=== PATIENT | female | born 1990 | race Caucasian/White ===

== ENCOUNTER → 2017-09-22 18:16 | Outpatient (CLI) | payer OTHER, SELFPAY ==
[2017-09-22 19:59] LABS: Group B Strep DNA By PCR POSITIVE (Negative); Probe Check PASS
== END ==
PROVIDERS: Visit Provider Obstetrics & Gynecology
DX: Z34.03 Encounter for supervision of normal first pregnancy, third trimester (principal)
CPT/HCPCS: 87077; 87081; 87186; 87653

== ENCOUNTER → 2017-10-09 13:46 | Outpatient (CLI) | payer OTHER, SELFPAY ==
--- NOTE | 2017-10-09 13:48 | US_ITS ---
STUDY: SECOND AND THIRD TRIMESTER OBSTETRICAL ULTRASOUND - LIMITED REASON FOR EXAM: Female, 27 years old. growth. LMP: 01/07/2017 PRIOR ULTRASOUND: 05/22/2017. TECHNIQUE: Transabdominal ultrasound evaluation was performed. FINDINGS: There is a single intrauterine fetus. The fetus is in a cephalic presentation. There is demonstrated cardiac activity with a heart rate of 140 bpm. There is a normal amniotic fluid volume. The largest amniotic fluid pocket measures 6.0 cm. The amniotic fluid index (CHIP) is 14.9 cm. The placenta is anterior in location and is not low lying. There are Grade 3 placental changes. The cervix measures 4.6 cm in length. BIOMETRY: BPD: 9.7: 39 weeks, 4 days HC: 33.9: 39 weeks, 1 days AC: 35.0: 39 weeks, 0 days FL: 7.3: 37 weeks, 4 days Age by LMP: 39 weeks, 1 days. ROMIE by LMP: 10/14/2017. age by prior US: 38 weeks, 6 days. ROMIE by prior US: 10/17/2017. age by current US: 39 weeks, 3 days. ROMIE by current US: 10/12/2018. Estimated weight: 3574 grams, +/- 522 grams, 58 percentile. Gender: US/OB Limited With Biometrics IMPRESSION: Single live fetus in a vertex presentation. survey not performed on this exam. Placenta is grade 3 and is not low-lying. Cervix is closed. age by prior US: 38 weeks, 6 days. ROMIE by prior US: 10/17/2017. Estimated weight: 3574 grams, +/- 522 grams, 58 percentile. Electronically Signed: John Cantrell MD at 9:24 EDT , Service support ,
== END ==
PROVIDERS: Visit Provider Obstetrics & Gynecology
DX: O26.843 Uterine size-date discrepancy, third trimester (principal); Z3A.00 Weeks of gestation of pregnancy not specified
CPT/HCPCS: 76816

== ENCOUNTER 2017-10-22 17:00 | Outpatient (CLI) | payer OTHER, SELFPAY ==
[2017-10-22 17:26] VITALS: BMI 33.9
--- NOTE | 2017-10-24 00:18 | OB.TRI.NOTE ---
History of Present Illness Date of Service: 10/22/17 Was patient seen by the physician?: No Reason For Visit: NST Date of Service: 10/22/17 Final ROMIE: 10/14/17 Gestational age: 41 Weeks and 3 Days History of Present Illness: 27 yo postdates Home Medications Medication Instructions Recorded ferrous sulfate 325 mg (65 mg 324 mg PO QDAY tab 07/20/17 iron) tablet,delayed release 1 tab PO QDAY 07/20/17 vitamin,calcium,pcmggkxp-ffjo-eirdc acid tablet Allergies amoxicillin Allergy (Intermediate, Verified 10/23/17 07:32) Rash NST - FHR Rate Baby A Baseline: 130 Variability:: Moderate Accelerations:: 15 x 15 Decelerations:: None NST Reactive:: Yes FHR Category:: Category I Uterine Activity:: no regular Impression/Plan reactive nst
== END 2017-10-22 17:36 | disposition home or self-care (01) ==
LOC: WPOUT 17:09 → WP 17:10
PROVIDERS: Visit Provider Obstetrics & Gynecology
DX: Z34.83 Encounter for supervision of other normal pregnancy, third trimester (principal); Z3A.41 41 weeks gestation of pregnancy
CPT/HCPCS: 59025; 59050; 99218; G0378

== ENCOUNTER 2017-10-23 07:05 | Inpatient (IN) | payer OTHER, SELFPAY ==
[2017-10-23 07:19] VITALS: BMI 33.7
[2017-10-23] MEDS: Lactated Ringers 1,000 ML 50 ML IV ×4 (08:00→21:31)
[2017-10-23] MEDS: miSOPROStol 25 MCG TABLET VAGINAL (08:12)
[2017-10-23 08:25] LABS: Hematocrit 33.6 % (37-47); Hemoglobin 11.2 g/dl (12.0-15.0); Mean Corp Hgb Conc 33.3 g/gl (32-36); Mean Corpuscular Hgb 29.2 pg (27.0-32.0); Mean Corpuscular Volume 87.5 fL (81-99); Mean Platelet Vol. 11.9 fl (6.2-12.0); Platelet Count 206 K/mm3 (150-450); RBC Distribution Width CV 13.6 % (11.6-14.6); RBC Distribution Width SD 41.4 fl (35.1-43.9); Red Blood Count 3.84 M/mm3 (4.2-5.4); White Blood Count 7.5 K/mm3 (4.4-11.0)
[2017-10-23 08:28] LABS: Scan Indicated on CBC? Y/N NO
[2017-10-23] MEDS: Clindamycin 900 MG/50 ML BAG 75 MG IV ×2 (08:45→17:21)
[2017-10-23] MEDS: Nalbuphine 10 MG/ML Ampul IV (11:02)
[2017-10-23] MEDS: Ondansetron 4 MG/2 ML Vial IV (13:05)
[2017-10-23] MEDS: fentaNYL-bupivacaine (epidural) 100 ML BAG EPIDURAL ×3 (13:27→22:50)
--- NOTE | 2017-10-23 13:29 | PCM.HP.OB ---
- Problem List (1) Post-dates Status: Acute History Date of Admission: 10/23/17 Final ROMIE: 10/14/17 Gestational age: 41 Weeks and 2 Days History of this : 27 yo @ 41w2d presents for IOL secondary to postdates. she co some ctx this morning and has made cervical change. Pertinent Past Medical History: FORMERLY [facility] Medical History Rheumatoid arthritis (Acute) Surgical History History of appendectomy (Acute) ankle surgery (Acute) Social History Smoking Status: Unknown if ever smoked alcohol intake: never substance use type: does not use caffeine: Yes what type of physical activity do you participate in: none seatbelt use: always do you feel safe at home: Yes additional social history: Geraldo- [employer] Pregancy History 1 Elective abortions Hx Para Spontaneous abortions Hx # Term Pregnancies Ectopic pregnancies Hx # Pregnancies Multiple births # of living children Allergies amoxicillin Allergy (Intermediate, Verified 10/23/17 07:32) Rash Current Medications Acetaminophen (Tylenol) 325 - 650 mg PO Q4H PRN PRN PRN Reason: PAIN OR FEVER >100.4F Al Hydroxide/Mg Hydroxide (Mylanta Ii) 15 - 30 ml PO Q4H PRN PRN PRN Reason: INDIGESTION Citric Acid/Sodium Citrate (Bicitra) 30 ml PO UD PRN Lactated Ringer's () 1,000 mls @ 50 mls/hr IV .Q20H [facility] Last Admin: 10/23/17 08:00 Dose: 50 mls/hr Clindamycin Phosphate (Cleocin) 900 mg in 50 mls @ 75 mls/hr IV Q8H [facility] Last Admin: 10/23/17 08:45 Dose: 75 mls/hr Misoprostol (Cytotec) 25 mcg VAGINAL Q4H [facility] Stop: 10/24/17 04:16 Last Admin: 10/23/17 08:12 Dose: 25 mcg Nalbuphine HCl (Nubain) 5 - 10 mg IV Q3H PRN PRN PRN Reason: PAIN (4-10/10) Last Admin: 04/02/18 11:02 Dose: 10 mg Ondansetron HCl (Zofran) 4 mg IV Q8H PRN PRN PRN Reason: NAUSEA Promethazine HCl (Phenergan Iv) 6.25 - 12.5 mg IV Q4H PRN PRN; Protocol PRN Reason: IF NAUSEA PERSISTS Sodium Chloride () 5 - 15 ml IV UD [facility] Last Admin: 10/23/17 08:32 Dose: Not Given Smoking Status: Never smoker Alcohol: None Drug Use: none Number of Fetus(es): 1 - 140s moderate variability reactive n odecels toco irregular Review of Systems Constitutional: Denies: Chills, Fever, Weight Change HEENT: Denies: Head Aches, Sinus Congestion, Sinus Drainage Cardiovascular: Denies: Chest Pain, Palpitations Respiratory: Denies: Cough, Shortness of breath at rest, Sputum production Gastrointestinal: Reports: Abdominal Pain, Nausea. Denies: Vomiting Genitourinary: Denies: Dysuria Gynecological: Denies: Vaginal bleeding, Vaginal discharge Musculoskeletal: Denies: Joint Pain, Joint Tenderness Skin: Denies: Rash, Wounds Neurological: Denies: Numbness, Tingling, Focal weakness Psychiatric: Denies: Anxiety, Depression, Homicidal Ideations, Suicidal Ideations Hematologic/ Lymphatic: Denies: Easy Bruising, Easy Bleeding Physical Exam General: Alert, Oriented x3, No apparent distress Cardiovascular: Regular rate Lungs: Normal air movement Abdomen: Soft, Non Tender, Gravid Estimated gestational size: Appropriate for gestational size Presentation: Cephalic Cervix Dilation (cm): 1 Station: -3 Effacement (%): 70 Assessment/Plan Active and Suspected Problems (Last Reviewed 10/19/17 @ 12:01 by Ly Hernández) Post-dates (Acute) 27 yo @ 41w2d presents for IOL postates plan cytotec then fb/pit. gbs pos give clinda, and epi prn
[2017-10-23] MEDS: 0.9% Normal Saline 100 ML IV.SOLN. INTRA-UTER (13:38)
[2017-10-23] MEDS: Oxytocin 30 units/NS 500 ml 30 UNITS/500 ML IV.SOLN IV (13:47)
--- NOTE | 2017-10-23 13:50 | HP.PCM_ITS ---
- Problem List (1) Post-dates Status: Acute History Date of Admission: 10/23/17 Final ROMIE: 10/14/17 Gestational age: 41 Weeks and 2 Days History of this : 27 yo @ 41w2d presents for IOL secondary to postdates. she co some ctx this morning and has made cervical change. 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 History 1 Elective abortions Hx Para Spontaneous abortions Hx # Term Pregnancies Ectopic pregnancies Hx # Pregnancies Multiple births # of living children Allergies amoxicillin Allergy (Intermediate, Verified 10/23/17 07:32) Rash Current Medications Acetaminophen (Tylenol) 325 - 650 mg PO Q4H PRN PRN PRN Reason: PAIN OR FEVER >100.4F Al Hydroxide/Mg Hydroxide (Mylanta Ii) 15 - 30 ml PO Q4H PRN PRN PRN Reason: INDIGESTION Citric Acid/Sodium Citrate (Bicitra) 30 ml PO UD PRN Lactated Ringer's () 1,000 mls @ 50 mls/hr IV .Q20H [facility] Last Admin: 10/23/17 08:00 Dose: 50 mls/hr Clindamycin Phosphate (Cleocin) 900 mg in 50 mls @ 75 mls/hr IV Q8H [facility] Last Admin: 10/23/17 08:45 Dose: 75 mls/hr Misoprostol (Cytotec) 25 mcg VAGINAL Q4H [facility] Stop: 10/24/17 04:16 Last Admin: 10/23/17 08:12 Dose: 25 mcg Nalbuphine HCl (Nubain) 5 - 10 mg IV Q3H PRN PRN PRN Reason: PAIN (4-10/10) Last Admin: 04/02/18 11:02 Dose: 10 mg Ondansetron HCl (Zofran) 4 mg IV Q8H PRN PRN PRN Reason: NAUSEA Promethazine HCl (Phenergan Iv) 6.25 - 12.5 mg IV Q4H PRN PRN; Protocol PRN Reason: IF NAUSEA PERSISTS Sodium Chloride () 5 - 15 ml IV UD [facility] Last Admin: 10/23/17 08:32 Dose: Not Given Smoking Status: Never smoker Alcohol: None Drug Use: none Number of Fetus(es): 1 - 140s moderate variability reactive n odecels toco irregular Review of Systems Constitutional: Denies: Chills, Fever, Weight Change HEENT: Denies: Head Aches, Sinus Congestion, Sinus Drainage Cardiovascular: Denies: Chest Pain, Palpitations Respiratory: Denies: Cough, Shortness of breath at rest, Sputum production Gastrointestinal: Reports: Abdominal Pain, Nausea. Denies: Vomiting Genitourinary: Denies: Dysuria Gynecological: Denies: Vaginal bleeding, Vaginal discharge Musculoskeletal: Denies: Joint Pain, Joint Tenderness Skin: Denies: Rash, Wounds Neurological: Denies: Numbness, Tingling, Focal weakness Psychiatric: Denies: Anxiety, Depression, Homicidal Ideations, Suicidal Ideations Hematologic/ Lymphatic: Denies: Easy Bruising, Easy Bleeding Physical Exam General: Alert, Oriented x3, No apparent distress Cardiovascular: Regular rate Lungs: Normal air movement Abdomen: Soft, Non Tender, Gravid Estimated gestational size: Appropriate for gestational size Presentation: Cephalic Cervix Dilation (cm): 1 Station: -3 Effacement (%): 70 Assessment/Plan Active and Suspected Problems (Last Reviewed 10/19/17 @ 12:01 by Ly Hernández) Post-dates (Acute) 27 yo @ 41w2d presents for IOL postates plan cytotec then fb/pit. gbs pos give clinda, and epi prn
--- NOTE | 2017-10-23 14:20 | PCM.PN.BLA ---
Progress Note fb placed 1-2 cm 80 % effaced, regular ctx painful, wants epi. reassuring FHT category 1 tracing
[2017-10-23] MEDS: Acetaminophen 325 MG Tablet PO (18:39)
[2017-10-23] MEDS: Amnioinfusion- 0.9% NS 1,000 ML IV.SOLN. 75 ML INTRA-UTER (23:35)
--- NOTE | 2017-10-24 00:16 | PCM.PN.BLA ---
Progress Note cervix 6 cm- increase pitocin to obtain adequate ctx. fht 150s min-mod variability periodic variables occasionally. start amnioinfusion. overall reassuring and positive scalp stimulation. exp managment
[2017-10-24] MEDS: Clindamycin 900 MG/50 ML BAG 75 MG IV ×2 (00:30→08:37)
[2017-10-24] MEDS: Acetaminophen 325 MG Tablet PO (03:05)
[2017-10-24] MEDS: fentaNYL-bupivacaine (epidural) 100 ML BAG EPIDURAL ×2 (04:17→09:51)
[2017-10-24] MEDS: Amnioinfusion- 0.9% NS 1,000 ML IV.SOLN. 75 ML INTRA-UTER (07:17)
--- NOTE | 2017-10-24 08:05 | PCM.PN.BLA ---
Progress Note now 8-9 cm 90 +1 station, continue pitocin 10 mU, category I- category II tracing psotive scalp stimulation min-moderate variability periodic occasional variable
[2017-10-24] MEDS: Lactated Ringers 1,000 ML 50 ML IV (08:34)
[2017-10-24] MEDS: Oxytocin 30 units/NS 500 ml 30 UNITS/500 ML IV.SOLN 334 UNITS IV (12:24)
[2017-10-24] MEDS: Oxytocin 30 units/NS 500 ml 30 UNITS/500 ML IV.SOLN 167 UNITS IV (12:54)
[2017-10-24 16:00] VITALS: BP 97/58; PULSE 90; RESP 18; TEMP 37.6; O2SAT 97
[2017-10-24] MEDS: Naproxen 250 MG Tablet PO (17:02)
[2017-10-24] MEDS: Acetaminophen 500 MG Tablet 1000 MG PO (19:52)
[2017-10-24 19:54] VITALS: BP 114/77; PULSE 97; RESP 18; TEMP 36.6
[2017-10-24 23:09] VITALS: BP 177/71; PULSE 80; RESP 18; TEMP 35.9
--- NOTE | 2017-10-25 01:49 | PCM.OB.VAG ---
- Problem List (1) Post-dates Status: Acute Vaginal Delivery Maternal Presentation: Medically Indicated Induction 27 yo @ 41w3d presents for IOL postdates Method of Induction: Pitocin, Rodriguez Bulb, Cytotec Medical Reason for Induction: Post term Amniotic Membrane Rupture Type: Artificial Amniotic Fluid Description: Thick meconium Final ROMIE: 10/14/17 Gestational age: 41 Weeks and 3 Days Date of Procedure: 10/24/17 Pre-Operative Diagnosis: iol postdates Post-Operative Diagnosis: same Surgery/ Procedure Performed: Spontaneous Vaginal Delivery Type of Anesthesia: Epidural Description of Procedure: Patient began pushing and delivered the head in the ANATOLY presentation. The head was delivered atraumatically . The anterior and posterior shoulders delivered without complication followed by the rest of the and the was placed on the maternal abdomen. Delayed cord clamping was employed for approximately 60 seconds. Cord was clamped and cut and gentle traction was applied to the cord and the placenta delivered spontaneously immediately following it was noted to be intact with three-vessel cord. some abnormal membranes were seen coming off from the cord approximately 3 cm from the insertion but no other gross abnormalities were seen. thin cord was noted. The perineum and vagina were inspected and noted to have a second degree perineal laceration that was repaired in the usual fashion with 3-0 rapide. an additional stitch was placed at the introitus and left hymenal ring. EBL was 600 cc. Patient and tolerated delivery well. Presentation: ANATOLY Placental Delivery Description: Spontaneous Placenta Disposition: [facility] Cord Vessel Description: 3 Vessels Cord Entanglement: None Estimated Blood Loss: 100 A gender: Male Episiotomy Description: None Laceration: Perineal Extension/lac, 2nd degree Medications given after delivery: IV Pitocin Complications: None
[2017-10-25 03:43] VITALS: BP 120/64; PULSE 82; RESP 16; TEMP 36.6
[2017-10-25] MEDS: Naproxen 250 MG Tablet PO ×2 (03:51→15:30)
[2017-10-25] MEDS: Acetaminophen 500 MG Tablet 1000 MG PO (08:41)
[2017-10-25 08:45] VITALS: BP 117/69; PULSE 80; RESP 20; TEMP 36.8; O2SAT 97
[2017-10-25] MEDS: Senna/Docusate Sodium 1 Tablet PO (10:36)
[2017-10-25 11:07] LABS: Absolute Lymphocyte Count 1.78 X10^3/ul (0.83-4.51); Absolute Neutrophil Count 13.7 X10^3/uL (2.0-7.7); Eosinophil# 0.05 X10^3/uL; Eosinophils% 0.3 % (0-5); Hematocrit 23.2 % (37-47); Hemoglobin 7.6 g/dl (12.0-15.0); Lymphocyte # 1.78 X10^3/ul (4.0); Lymphocyte % 10.8 % (19-41); Mean Corp Hgb Conc 32.8 g/gl (32-36); Mean Corpuscular Hgb 28.4 pg (27.0-32.0); Mean Corpuscular Volume 86.6 fL (81-99); Mean Platelet Vol. 11.4 fl (6.2-12.0); Monocyte# 0.87 X10^3/uL; Monocyte% 5.3 % (0-10); Neutrophil # 13.68 X10^3/uL (2.7-7.7); Neutrophil % 83.2 % (47-70); Platelet Count 199 K/mm3 (150-450); RBC Distribution Width CV 14.6 % (11.6-14.6); RBC Distribution Width SD 45.2 fl (35.1-43.9); Red Blood Count 2.68 M/mm3 (4.2-5.4); White Blood Count 16.4 K/mm3 (4.4-11.0)
[2017-10-25 11:12] LABS: POSITIVE COUNT NO; POSITIVE DIFFERENTIAL NO; POSITIVE MORPHOLOGY NO
[2017-10-25 12:05] VITALS: BP 113/71; PULSE 95; TEMP 36.7; O2SAT 94
[2017-10-25 14:18] LABS: Hemoglobin 7.6 g/dl (12.0-15.0)
[2017-10-25 17:20] VITALS: BP 118/78; PULSE 91; TEMP 36.2; O2SAT 96
[2017-10-25 21:06] VITALS: BP 134/83; PULSE 100; RESP 18; TEMP 36.8
[2017-10-26] MEDS: Naproxen 250 MG Tablet PO (00:29)
[2017-10-26 02:40] VITALS: BP 121/72; PULSE 94; RESP 16; TEMP 36.8
--- NOTE | 2017-10-26 08:02 | PCM.PN.OB ---
Patient Problems: Active and Suspected Problems (Last Reviewed 10/19/17 @ 12:01 by Ly Hernández) Post-dates (Acute) Subjective: Doing well. Denies SOB, CP, NV. - Physical Exam General: Alert, Oriented x3 Abdomen: Soft, Non Tender, - - FF Below U Vital Signs Temp Pulse Resp BP Pulse Ox 98.2 F 94 16 121/72 H 96 10/26/17 02:40 10/26/17 02:40 10/26/17 02:40 10/26/17 02:40 10/25/17 17:20 Oxygen Delivery Method Room Air Weight: 190 lb 7.67 oz Body Mass Index (BMI) 33.7 Intake and Output for Last 24 Hours 10/24/17 10/25/17 10/26/17 23:59 23:59 23:59 Intake Total 4810 / 4810 Output Total 2049 / 2049 Balance 2760 / 2760 Laboratory Tests Past 24 Hrs 10/25/17 10/25/17 10:42 14:08 WBC 16.4 H RBC 2.68 L Hgb 7.6 L 7.6 L Hct 23.2 L MCV 86.6 MCH 28.4 MCHC 32.8 RDW 14.6 RDW Differential 45.2 H Plt Count 199 MPV 11.4 Immature Gran % (Auto) 0.400 Neut % (Auto) 83.2 H Lymph % (Auto) 10.8 L [place] % (Auto) 5.3 Eos % (Auto) 0.3 Baso % (Auto) 0.0 Absolute Neuts (auto) 13.7 H Absolute Lymphs (auto) 1.78 Total Counted Not Reportable Medical Necessity - Tobacco Use Smoking Status: Never smoker Assessment/Plan Active and Suspected Problems (Last Reviewed 10/19/17 @ 12:01 by Ly Hernández) Post-dates (Acute) PPD #2. Doing well. Routine care. Rh positive. . Plans home today.
--- NOTE | 2017-10-26 08:10 | PCM.DCVAG ---
Discharge Diet: No Restrictions Discharge Activity: Return to Normal Activity, May not drive while taking narcotic pain medications., May Shower May resume sexual activity in: 4-6 weeks Additional Activity Instructions:: Nothing in the vagina for 4-6 weeks. You may return to work/school in 6 weeks. Call your doctor if your incision/area has: Continuous Slow Oozing, Sudden Increased Bleeding, Increased Pain/ Swelling, Increased Redness, Foul Smelling Discharge Additional Instructions: If you experience any of the following, contact your healthcare provider. Bleeding that soaks a pad every hour for 2 hours Fever 100.4 or higher Unrelieved incision or abdominal pain Swelling, redness, discharge or bleeding from your incision or episiotomy site Your incision begins to separate Problems urinating (including inability to urinate or burning while urinating). Visual changes Severe headache Flu-like symptoms Pain or redness in one of both of your breasts Pain, warmth, tenderness or swelling in your legs, especially the calf area Frequent nausea and vomiting Symptoms of depression or anxiety If you experience any of the following, call 911 or go to the nearest Emergency Room. Chest pain Problems breathing Seizure activity Partial or complete paralysis of a body part, slurred speech, weakness or drooping of the face, or a sudden inability to walk or hold your balance Allergies/Adverse Reactions: Allergies amoxicillin Allergy (Intermediate, Verified 10/23/17 07:32) Rash Medications to take at Discharge ferrous sulfate 325 mg (65 mg iron) tablet,delayed release 324 mg PO QDAY tab 07/20/17 vitamin,calcium,chwgxjsz-tnfg-ybbzu acid tablet 1 tab PO QDAY 07/20/17 When: Call to make an appointment with your doctor in 6 weeks. If you had elevated Blood Pressure or 4th degree laceration you will need to be seen in 2 weeks. Primary Care Physician: Care Physician,No Primary [Primary Care Provider] -
--- NOTE | 2017-10-26 08:11 | DCINST_ITS ---
Discharge Diet: No Restrictions Discharge Activity: Return to Normal Activity, May not drive while taking narcotic pain medications., May Shower May resume sexual activity in: 4-6 weeks Additional Activity Instructions:: Nothing in the vagina for 4-6 weeks. You may return to work/school in 6 weeks. Call your doctor if your incision/area has: Continuous Slow Oozing, Sudden Increased Bleeding, Increased Pain/ Swelling, Increased Redness, Foul Smelling Discharge Additional Instructions: If you experience any of the following, contact your healthcare provider. * Bleeding that soaks a pad every hour for 2 hours * Fever 100.4 or higher * Unrelieved incision or abdominal pain * Swelling, redness, discharge or bleeding from your incision or episiotomy site * Your incision begins to separate * Problems urinating (including inability to urinate or burning while urinating) . * Visual changes * Severe headache * Flu-like symptoms * Pain or redness in one of both of your breasts * Pain, warmth, tenderness or swelling in your legs, especially the calf area * Frequent nausea and vomiting * Symptoms of depression or anxiety If you experience any of the following, call 911 or go to the nearest Emergency Room. * Chest pain * Problems breathing * Seizure activity * Partial or complete paralysis of a body part, slurred speech, weakness or drooping of the face, or a sudden inability to walk or hold your balance Allergies/Adverse Reactions: Allergies amoxicillin Allergy (Intermediate, Verified 10/23/17 07:32) Rash Medications to take at Discharge ferrous sulfate 325 mg (65 mg iron) tablet,delayed release 324 mg PO QDAY tab 07/20/17 vitamin,calcium,cckulete-exuj-ttbek acid tablet 1 tab PO QDAY 07/20/17 When: Call to make an appointment with your doctor in 6 weeks. If you had elevated Blood Pressure or 4th degree laceration you will need to be seen in 2 weeks. Primary Care Physician: Care Physician,No Primary [Primary Care Provider] -
[2017-10-26 08:40] VITALS: BP 122/78; PULSE 94; RESP 20; TEMP 36.9; O2SAT 97
--- NOTE | 2017-10-26 10:25 | PCM.DC.SUM ---
Discharge Date and Diagnosis - Problem List Patient Problems: Active and Suspected Problems (Last Reviewed 10/19/17 @ 12:01 by Ly Hernández) Post-dates (Acute) Date of Admission: 10/23/17 - Primary Discharge Diagnosis Active and Suspected Problems (Last Reviewed 10/19/17 @ 12:01 by Ly Hernández) Post-dates (Acute) Hospital Course and Treatment Consultations 10/23/17 07:19 Consult: Anesthesia Routine Comment: Reason For Exam: labor Summary of Care Provided: The patient is a 27 year old F [] Discharge Diet: No Restrictions Discharge Activity: Return to Normal Activity, May not drive while taking narcotic pain medications., May Shower May resume sexual activity in: 4-6 weeks Additional Activity Instructions:: Nothing in the vagina for 4-6 weeks. You may return to work/school in 6 weeks. Call your doctor if your incision/area has: Continuous Slow Oozing, Sudden Increased Bleeding, Increased Pain/ Swelling, Increased Redness, Foul Smelling Discharge Home Medications: Medications to take at Discharge ferrous sulfate 325 mg (65 mg iron) tablet,delayed release 324 mg PO QDAY tab 07/20/17 vitamin,calcium,ahgktsau-vgzp-twgrh acid tablet 1 tab PO QDAY 07/20/17 Primary Care Physician: Care Physician,No Primary [Primary Care Provider] - Medical Necessity - Tobacco Use Smoking Status: Never smoker Meaningful Use Info Meaningful Use Diagnoses (Choose all that apply): None applicable
== END 2017-10-26 12:35 | disposition home or self-care (01) | DRG 775 ==
PROVIDERS: Nurse Practitioner Women's Health; Admitting Provider Obstetrics & Gynecology; Visit Provider Obstetrics & Gynecology
DX: O48.0 Post-term pregnancy (principal); O70.1 Second degree perineal laceration during delivery; O77.0 Labor and delivery complicated by meconium in amniotic fluid; Z37.0 Single live birth; Z3A.41 41 weeks gestation of pregnancy
CPT/HCPCS: 59025; 59050; 85018; 85025; 85027; 86850; 86900; 99218; J7030; J7120; G0378; J2405

== ENCOUNTER → 2018-11-27 | Outpatient (CLI) | payer OTHER, SELFPAY ==
[2018-09-24 11:03] VITALS: BMI 27.4
[2018-11-27 13:09] LABS: Progesterone Level 0.37 ng/mL (See Comment)
== END | disposition home or self-care (01) ==
LOC: BIMLAB 08:10
PROVIDERS: Family Provider Family Medicine; Visit Provider Nurse Practitioner Women's Health
DX: N97.9 Female infertility, unspecified (principal)
CPT/HCPCS: 36415; 84144

== ENCOUNTER → 2018-12-12 | Outpatient (CLI) | payer OTHER, SELFPAY ==
[2018-12-12 10:26] VITALS: BMI 27.4
[2018-12-15 12:51] LABS: HPV Reflexed? NOT INDICATED
== END | disposition home or self-care (01) ==
LOC: LABSPEC 17:11
PROVIDERS: Referring Provider Obstetrics & Gynecology; Visit Provider Obstetrics & Gynecology
DX: Z12.4 Encounter for screening for malignant neoplasm of cervix (principal)
CPT/HCPCS: 87624; 88175; G0145

== ENCOUNTER → 2019-01-07 | Outpatient (CLI) | payer OTHER, SELFPAY ==
[2018-12-12 10:26] VITALS: BMI 27.4
[2019-01-07 15:55] LABS: Progesterone Level 3.54 ng/mL (See Comment)
== END | disposition home or self-care (01) ==
LOC: MTLAB 14:03
PROVIDERS: Referring Provider Obstetrics & Gynecology; Visit Provider Obstetrics & Gynecology
DX: N97.0 Female infertility associated with anovulation (principal)
CPT/HCPCS: 36415; 84144

== ENCOUNTER → 2019-02-14 | Outpatient (CLI) | payer OTHER, SELFPAY ==
[2018-12-12 10:26] VITALS: BMI 27.4
[2019-02-14 13:10] LABS: Progesterone Level 0.12 ng/mL (See Comment)
== END | disposition home or self-care (01) ==
LOC: BIMLAB 11:54
PROVIDERS: Visit Provider Obstetrics & Gynecology
DX: N97.0 Female infertility associated with anovulation (principal)
CPT/HCPCS: 36415; 84144

== ENCOUNTER → 2019-04-09 09:11 | Outpatient (REF) | payer OTHER, SELFPAY ==
[2018-12-12 10:26] VITALS: BMI 27.4
[2019-04-09 12:07] LABS: Color, Urine Yellow (Yellow); Glucose, Dipstick Normal (Normal); Ketone-Dipstick Negative (Negative); Leukocyte Esterase-Dipstick Negative /ul (Negative); Nitrite-Dipstick Negative (Negative); Occult Blood-Urine Negative /ul (Negative); Protein-Dipstick Negative (Negative); Specific Gravity, Urine 1.015 (1.002-1.030); Urine Bilirubin Dipstick Negative (Negative); Urine Clarity Sl. Cloudy (Clear); Urine Urobilinogen Normal (Normal)
[2019-04-09 12:20] LABS: Absolute Lymphocyte Count 0.85 X10^3/uL (0.83-4.51); Absolute Neutrophil Count 2.5 X10^3/uL (2.0-7.7); Eosinophil# 0.06 X10^3/uL; Eosinophils% 1.6 % (0-5); Hematocrit 37.6 % (37-47); Hemoglobin 11.9 g/dL (12.0-15.0); Lymphocyte # 0.85 X10^3/ul; Lymphocyte % 22.8 % (19-41); Mean Corp Hgb Conc 31.6 g/dL (32-36); Mean Corpuscular Hgb 27.9 pg (27.0-32.0); Mean Corpuscular Volume 88.1 fL (81-99); Mean Platelet Vol. 10.5 fl (6.2-12.0); Monocyte# 0.32 X10^3/uL; Monocyte% 8.6 % (0-10); NRBC Flagged by Analyzer 0 % (0-5); Neutrophil # 2.48 X10^3/uL (2.7-7.7); Neutrophil % 66.7 % (47-70); Platelet Count 204 K/mm3 (150-450); RBC Distribution Width CV 11.9 % (11.6-14.6); RBC Distribution Width SD 38.5 fl (35.1-43.9); Red Blood Count 4.27 M/mm3 (4.2-5.4); White Blood Count 3.7 K/mm3 (4.4-11.0)
[2019-04-09 12:40] LABS: ALB/GLOB Ratio 0.8 RATIO (0.9-2.4); AST(SGOT) 13 U/L (15-37); Alanine Aminotransfer ALT/SGPT 25 U/L (13-56); Albumin, Serum 3.8 g/dL (3.2-5.0); Alkaline Phosphatase 85 U/L (45-117); Anion Gap 4 (5-15); BUN 15 mg/dL (7-18); Bilirubin, Direct 0.07 mg/dL (0.00-0.30); Calcium,Total 9.1 mg/dL (8.5-10.1); Chloride 106 mmol/L (98-107); Cholesterol 151 mg/dL (200); Creatinine, Serum 0.75 mg/dL (0.55-1.02); EST Glomerular Filtration Rate 97 mL/min (>60); Est Glom Filt Rate - Afr Amer 118 mL/min (>60); Globulin 4.5 g/dL (2.2-4.2); Glucose 81 mg/dL (74-106); High Density Lipoprotein 39 mg/dL; LDH 184 U/L (84-246); Phosphorus 3.7 mg/dL (2.5-4.9); Protein, Total 8.3 g/dL (6.4-8.2); Sodium Level 139 mmol/L (136-145); Triglycerides 90 mg/dL; Uric Acid 4.7 mg/dL (2.6-6.0); Very Low Density Lipoprotein 18 mg/dL (5-40)
== END ==
LOC: EMPH 09:11
DX: Z00.00 Encounter for general adult medical examination without abnormal findings (principal)

== ENCOUNTER → 2019-04-09 09:14 | Outpatient (CLI) | payer OTHER, SELFPAY ==
[2018-12-12 10:26] VITALS: BMI 27.4
[2019-04-09 12:43] LABS: Progesterone Level 0.15 ng/mL (See Comment)
[2019-04-09 13:01] LABS: Estradiol 30.2 pg/mL; Follicle Stimulating Hormone 7.4 mIU/mL; Prolactin 5.5 ng/mL; T4 Free Direct 0.99 ng/dL (0.76-1.46); Thyroid Stim Hormone (TSH) 2.17 uIU/mL (0.358-3.74)
[2019-04-11 17:33] LABS: Testosterone Free 1.2 pg/mL (0.0-4.2)
== END ==
PROVIDERS: Visit Provider Obstetrics & Gynecology
DX: N92.1 Excessive and frequent menstruation with irregular cycle (principal); N95.1 Menopausal and female climacteric states
CPT/HCPCS: 36415; 82670; 83001; 84144; 84146; 84402; 84439; 84443

== ENCOUNTER → 2019-06-03 10:30 | Outpatient (CLI) | payer OTHER, SELFPAY ==
[2018-12-12 10:26] VITALS: BMI 27.4
[2019-06-03 12:00] LABS: Glucose 75GTT - 30 minutes 114 mg/dL (100-160)
[2019-06-03 12:04] LABS: Glucose 75GTT - Fasting 83 mg/dL (70-99)
[2019-06-03 12:20] LABS: AST(SGOT) 15 U/L (15-37); Alanine Aminotransfer ALT/SGPT 27 U/L (13-56); Albumin, Serum 3.7 g/dL (3.2-5.0); Alkaline Phosphatase 67 U/L (45-117); Anion Gap 6 (5-15); BUN 13 mg/dL (7-18); BUN/Creat Ratio 18.3 RATIO (10-20); Bilirubin, Direct 0.08 mg/dL (0.00-0.30); Calcium,Total 8.8 mg/dL (8.5-10.1); Chloride 110 mmol/L (98-107); Cholesterol 117 mg/dL (200); Creatinine, Serum 0.71 mg/dL (0.55-1.02); EST Glomerular Filtration Rate 104 mL/min (>60); Est Glom Filt Rate - Afr Amer 126 mL/min (>60); Globulin 4.1 g/dL (2.2-4.2); Glucose 81 mg/dL (74-106); High Density Lipoprotein 35 mg/dL; Phosphorus 2.2 mg/dL (2.5-4.9); Potassium 3.8 mmol/L (3.5-5.1); Protein, Total 7.8 g/dL (6.4-8.2); Sodium Level 141 mmol/L (136-145); Triglycerides 93 mg/dL; Very Low Density Lipoprotein 19 mg/dL (5-40)
[2019-06-03 12:26] LABS: Insulin 8.7 mU/L (2.6-37.6); Rubella IgG 341.7 IU/mL
[2019-06-03 13:18] LABS: Glucose 75GTT - 60 minutes 98 mg/dL (100-160)
[2019-06-03 14:03] LABS: Glucose 75GTT - 120 minutes 95 mg/dL (70-140)
[2019-06-04 16:07] LABS: DHEA Sulfate 114.7 ug/dL (84.8-378.0); Hemoglobin Fraction A 94.9 % (96.4-98.8); Hemoglobin Fraction A2 1.9 % (1.8-3.2); Hemoglobin Fraction C 0 % (0.0); Hemoglobin Fraction F 3.2 % (0.0-2.0); Hemoglobin Fraction S 0 % (0.0); Hemoglobin Solubility,Panel Negative (Negative)
[2019-06-05 11:44] LABS: V-Zoster IgG (Immunity) 1593 index (Immune >165)
[2019-06-05 20:19] LABS: 17-Hydroxyprogesterone 32 ng/dL (.)
== END ==
PROVIDERS: PCP Family Medicine
DX: E16.8 Other specified disorders of pancreatic internal secretion (principal); Z31.41 Encounter for fertility testing; Z11.59 Encounter for screening for other viral diseases; Z01.83 Encounter for blood typing
CPT/HCPCS: 36415; 80048; 80061; 80076; 82627; 82951; 82952; 83021; 83498; 83525; 84100; 84403; 85660; 86762; 86787; 86850; 86900; 86901; 82626

== ENCOUNTER → 2019-10-08 13:57 | Outpatient (CLI) | payer OTHER, SELFPAY ==
[2018-12-12 10:26] VITALS: BMI 27.4
[2019-10-08 15:51] LABS: hCG Titer Quant., Serum 32 mIU/mL (1-3)
[2019-10-08 18:40] LABS: Progesterone Level > 60.00 ng/mL (See Comment)
== END ==
PROVIDERS: PCP Family Medicine; Referring Provider Nurse Practitioner Women's Health; Visit Provider Nurse Practitioner Women's Health
DX: O20.0 Threatened abortion (principal); N97.0 Female infertility associated with anovulation; Z3A.00 Weeks of gestation of pregnancy not specified
CPT/HCPCS: 36415; 84144; 84702

== ENCOUNTER → 2019-10-10 12:27 | Outpatient (CLI) | payer OTHER, SELFPAY ==
[2018-12-12 10:26] VITALS: BMI 27.4
[2019-10-10 16:03] LABS: hCG Titer Quant., Serum 53 mIU/mL (1-3)
== END ==
PROVIDERS: PCP Family Medicine; Referring Provider Nurse Practitioner Women's Health; Visit Provider Nurse Practitioner Women's Health
DX: O20.0 Threatened abortion (principal); N97.0 Female infertility associated with anovulation; Z3A.00 Weeks of gestation of pregnancy not specified
CPT/HCPCS: 36415; 84702

== ENCOUNTER → 2019-10-12 14:16 | Outpatient (CLI) | payer OTHER, SELFPAY ==
[2018-12-12 10:26] VITALS: BMI 27.4
[2019-10-12 14:58] LABS: hCG Titer Quant., Serum 146 mIU/mL (1-3)
== END ==
PROVIDERS: PCP Family Medicine; Visit Provider Nurse Practitioner Women's Health
DX: O20.0 Threatened abortion (principal); Z3A.00 Weeks of gestation of pregnancy not specified
CPT/HCPCS: 36415; 84702

== ENCOUNTER → 2019-10-28 15:55 | Outpatient (CLI) | payer OTHER, SELFPAY ==
[2019-10-28 15:32] VITALS: BMI 27.4
[2019-10-28 16:59] LABS: Progesterone Level 17.58 ng/mL (See Comment)
[2019-10-28 17:26] LABS: hCG Titer Quant., Serum 335 mIU/mL (1-3)
== END ==
PROVIDERS: PCP Family Medicine; Referring Provider Obstetrics & Gynecology; Visit Provider Obstetrics & Gynecology
DX: O20.0 Threatened abortion (principal); Z3A.00 Weeks of gestation of pregnancy not specified
CPT/HCPCS: 36415; 84144; 84702

== ENCOUNTER → 2019-10-30 | Outpatient (CLI) | payer OTHER, SELFPAY ==
[2019-10-28 15:32] VITALS: BMI 27.4
[2019-10-30 18:31] LABS: hCG Titer Quant., Serum 315 mIU/mL (1-3)
== END | disposition home or self-care (01) ==
LOC: LABSPEC 17:39
PROVIDERS: PCP Family Medicine; Visit Provider Obstetrics & Gynecology
DX: O20.0 Threatened abortion (principal); Z3A.00 Weeks of gestation of pregnancy not specified
CPT/HCPCS: 84702

== ENCOUNTER → 2019-11-04 13:04 | Outpatient (CLI) | payer OTHER, SELFPAY ==
[2019-10-28 15:32] VITALS: BMI 27.4
[2019-11-04 14:04] LABS: Hemoglobin A1c 4.5 % (4.2-6.3); hCG Titer Quant., Serum 248 mIU/mL (1-3)
[2019-11-04 14:09] LABS: Thyroid Stim Hormone (TSH) 2.35 uIU/mL (0.358-3.74)
[2019-11-04 14:39] LABS: HIV - WCH Non-Reactive (Nonreactive); Hepatitis B Surface Antigen Non-Reactive (Nonreactive); Hepatitis C Antibody Non-Reactive (Nonreactive)
[2019-11-04 15:29] LABS: Chlamydia Trachomatis by PCR Negative (Negative); Neisserai gonorrhoeae by PCR Negative (Negative); Probe Check PASS; Sample Adequacy Control PASS; Specimen Processing Control PASS
[2019-11-07 00:57] LABS: Rapid Plasmin Reagin (RPR) NONREACTIVE (NONREACTIVE)
== END ==
PROVIDERS: PCP Family Medicine; Referring Provider Obstetrics & Gynecology Reproductive Endocrinology; Visit Provider Obstetrics & Gynecology Reproductive Endocrinology
DX: Z31.41 Encounter for fertility testing (principal); Z11.9 Encounter for screening for infectious and parasitic diseases, unspecified; E03.9 Hypothyroidism, unspecified; Z11.4 Encounter for screening for human immunodeficiency virus [HIV]
CPT/HCPCS: 36415; 83036; 84443; 84702; 86592; 86703; 86803; 87340; 87491; 87591

== ENCOUNTER → 2019-11-07 | Outpatient (CLI) | payer OTHER, SELFPAY ==
[2019-10-28 15:32] VITALS: BMI 27.4
[2019-11-07 13:14] LABS: hCG Titer Quant., Serum 151 mIU/mL (1-3)
== END | disposition home or self-care (01) ==
LOC: LABSPEC 12:22
PROVIDERS: PCP Family Medicine; Referring Provider Obstetrics & Gynecology Reproductive Endocrinology; Visit Provider Obstetrics & Gynecology Reproductive Endocrinology
DX: O02.1 Missed abortion (principal)
CPT/HCPCS: 84702

== ENCOUNTER → 2019-11-15 | Outpatient (CLI) | payer OTHER, SELFPAY ==
[2019-10-28 15:32] VITALS: BMI 27.4
[2019-11-15 13:47] LABS: hCG Titer Quant., Serum 8 mIU/mL (1-3)
== END | disposition home or self-care (01) ==
LOC: LABSPEC 11:21
PROVIDERS: PCP Family Medicine; Referring Provider Obstetrics & Gynecology Reproductive Endocrinology; Visit Provider Obstetrics & Gynecology Reproductive Endocrinology
DX: O02.1 Missed abortion (principal); Z3A.00 Weeks of gestation of pregnancy not specified
CPT/HCPCS: 84702

== ENCOUNTER → 2019-11-25 | Outpatient (CLI) | payer OTHER, SELFPAY ==
[2019-10-28 15:32] VITALS: BMI 27.4
[2019-11-25 11:01] LABS: hCG Titer Quant., Serum < 1 mIU/mL (1-3)
== END | disposition home or self-care (01) ==
PROVIDERS: PCP Family Medicine; Referring Provider Obstetrics & Gynecology Reproductive Endocrinology; Visit Provider Obstetrics & Gynecology Reproductive Endocrinology
DX: O03.9 Complete or unspecified spontaneous abortion without complication (principal)
CPT/HCPCS: 84702

== ENCOUNTER → 2019-12-27 09:34 | Outpatient (CLI) | payer OTHER, SELFPAY ==
[2019-10-28 15:32] VITALS: BMI 27.4
[2019-12-27 10:09] LABS: hCG Titer Quant., Serum < 1 mIU/mL (1-3)
[2019-12-27 11:13] LABS: Progesterone Level < 0.21 ng/mL (See Comment)
== END ==
PROVIDERS: PCP Family Medicine; Referring Provider Obstetrics & Gynecology Reproductive Endocrinology; Visit Provider Obstetrics & Gynecology Reproductive Endocrinology
DX: N91.0 Primary amenorrhea (principal); Z32.00 Encounter for pregnancy test, result unknown
CPT/HCPCS: 36415; 84144; 84702

== ENCOUNTER → 2020-03-18 12:45 | Outpatient (CLI) | payer OTHER, SELFPAY ==
[2019-10-28 15:32] VITALS: BMI 27.4
[2020-03-18 13:28] LABS: hCG Titer Quant., Serum 68 mIU/mL (1-3)
== END ==
PROVIDERS: PCP Family Medicine; Referring Provider Obstetrics & Gynecology Reproductive Endocrinology; Visit Provider Obstetrics & Gynecology Reproductive Endocrinology
DX: Z32.00 Encounter for pregnancy test, result unknown (principal)
CPT/HCPCS: 36415; 84702

== ENCOUNTER → 2020-03-20 12:40 | Outpatient (CLI) | payer OTHER, SELFPAY ==
[2019-10-28 15:32] VITALS: BMI 27.4
[2020-03-20 13:34] LABS: hCG Titer Quant., Serum 132 mIU/mL (1-3)
== END ==
PROVIDERS: Referring Provider Obstetrics & Gynecology Reproductive Endocrinology; Visit Provider Obstetrics & Gynecology Reproductive Endocrinology
DX: Z32.01 Encounter for pregnancy test, result positive (principal)
CPT/HCPCS: 36415; 84702

== ENCOUNTER 2020-04-08 09:09 | Outpatient (RCR) | payer OTHER, SELFPAY ==
[2019-10-28 15:32] VITALS: BMI 27.4
== END 2020-04-22 23:59 ==
LOC: EMPH 09:09
PROVIDERS: Visit Provider Family Medicine Geriatric Medicine
DX: Z11.59 Encounter for screening for other viral diseases (principal)

== ENCOUNTER → 2020-04-08 22:56 | Outpatient (CLI) | payer OTHER, SELFPAY ==
[2019-10-28 15:32] VITALS: BMI 27.4
== END ==
PROVIDERS: Visit Provider Family Medicine Geriatric Medicine
DX: Z11.59 Encounter for screening for other viral diseases (principal)
CPT/HCPCS: 87635; U0003

== ENCOUNTER → 2020-05-12 16:29 | Outpatient (CLI) | payer OTHER, SELFPAY ==
[2020-05-12 16:22] VITALS: BMI 33.3
[2020-05-13 08:54] LABS: Hepatitis C Antibody Non-Reactive (Nonreactive)
== END ==
PROVIDERS: Referring Provider Obstetrics & Gynecology; Visit Provider Obstetrics & Gynecology
DX: Z34.90 Encounter for supervision of normal pregnancy, unspecified, unspecified trimester (principal)
CPT/HCPCS: 36415; 86803; 86850; 86900; 86901

== ENCOUNTER → 2020-07-13 | Outpatient (CLI) | payer OTHER, SELFPAY ==
[2020-07-13 14:22] VITALS: BMI 34.2
[2020-07-13 17:21] LABS: Amphetamine Urine VISTA NEGATIVE (<1000 ng/mL); Barbiturate Urine VISTA NEGATIVE (< 200 ng/mL); Benzodiazepine Urine VISTA NEGATIVE (< 200 ng/mL); Cocaine Urine VISTA NEGATIVE (< 300 ng/mL); Ecstacy Urine VISTA NEGATIVE (< 500 ng/mL); Methadone Urine VISTA NEGATIVE (< 300 ng/mL); PCP Urine VISTA NEGATIVE (< 25 ng/mL); THC Urine VISTA NEGATIVE (< 50 ng/mL); Vista UDS pH Range 6
== END | disposition home or self-care (01) ==
LOC: LABSPEC 16:18
PROVIDERS: Referring Provider Obstetrics & Gynecology; Visit Provider Obstetrics & Gynecology
DX: Z34.90 Encounter for supervision of normal pregnancy, unspecified, unspecified trimester (principal)
CPT/HCPCS: 80307; 87086

== ENCOUNTER → 2020-08-03 08:40 | Outpatient (CLI) | payer OTHER, SELFPAY ==
[2020-08-03 08:20] VITALS: BMI 34.5
== END ==
PROVIDERS: Referring Provider Obstetrics & Gynecology; Visit Provider Obstetrics & Gynecology
DX: Z36.9 Encounter for antenatal screening, unspecified (principal)
CPT/HCPCS: 36415

== ENCOUNTER → 2020-08-31 12:28 | Outpatient (CLI) | payer OTHER, SELFPAY ==
[2020-08-03 08:20] VITALS: BMI 34.5
[2020-08-31 10:10] VITALS: BMI 34.4
--- NOTE | 2020-08-31 12:30 | US_ITS ---
STUDY: SECOND AND THIRD TRIMESTER OBSTETRICAL ULTRASOUND REASON FOR EXAM: Female, 30 years old growth LMP: 02/19/2020. TECHNIQUE: Transabdominal. Patient refused transvaginal examination. TECHNICAL QUALITY: Adequate. PRIOR ULTRASOUND: None. FINDINGS: There is a single intrauterine fetus. The fetus is in an transverse lie with the head on the maternal left side. There is demonstrated cardiac activity with a heart rate of 133 bpm. There is a normal amniotic fluid volume. The largest amniotic fluid pocket measures 7.7 cm. The amniotic fluid index (CHIP) is 11.8 cm. The placenta is anterior with a marginal previa. There are Grade 1 placental changes. The cervix measures 3.8 cm in length. The adnexal regions are not visualized. BIOMETRY: BPD: 7.16 cm: 28 weeks, 5 days HC: 26.2 cm: 28 weeks, 3 days AC: 24.8 cm: 29 weeks, 0 days FL: 5.4 cm: 28 weeks, 4 days CI: 80% FL/BPD: 76% FL/HC: FL/AC: 22% HC/AC: 1.06 age by current US: 28 weeks, 3 days. ROMIE by current US: 11/20/2020. Estimated weight: 1311 grams, +/- 197 grams, 82 %. Age by LMP: 27 weeks, 5 days. ROMIE by LMP: 11/25/2020. US/OB Limited With Biometrics IMPRESSION: Single live uterine gestation with a mean gestational age of 28 weeks and 3 days. There is evidence of an anterior marginal placenta previa. Electronically Signed: Alex Harper MD at 15:39 EST , Service support ,
== END ==
PROVIDERS: Referring Provider Obstetrics & Gynecology; Visit Provider Obstetrics & Gynecology
DX: O98.513 Other viral diseases complicating pregnancy, third trimester (principal); U07.1 COVID-19; Z3A.28 28 weeks gestation of pregnancy
CPT/HCPCS: 76816

== ENCOUNTER → 2020-09-01 10:54 | Outpatient (CLI) | payer OTHER, SELFPAY ==
[2020-08-31 10:10] VITALS: BMI 34.4
[2020-09-01 13:10] LABS: Absolute Lymphocyte Count 0.99 X10^3/uL (0.83-4.51); Eosinophil# 0.06 X10^3/uL; Eosinophils% 0.9 % (0-5); Hematocrit 31.4 % (37-47); Hemoglobin 10.2 g/dL (12.0-15.0); Lymphocyte # 0.99 X10^3/ul (4.0); Lymphocyte % 15.2 % (19-41); Mean Corp Hgb Conc 32.5 g/dL (32-36); Mean Corpuscular Hgb 29.7 pg (27.0-32.0); Mean Corpuscular Volume 91.5 fL (81-99); Mean Platelet Vol. 10.9 fl (6.2-12.0); Monocyte# 0.43 X10^3/uL; Monocyte% 6.6 % (0-10); NRBC Flagged by Analyzer 0 % (0-5); Neutrophil # 5.02 X10^3/uL (2.7-7.7); Neutrophil % 76.8 % (47-70); Platelet Count 239 K/mm3 (150-450); RBC Distribution Width CV 13.2 % (11.6-14.6); RBC Distribution Width SD 43.8 fl (35.1-43.9); Red Blood Count 3.43 M/mm3 (4.2-5.4); White Blood Count 6.5 K/mm3 (4.4-11.0)
[2020-09-01 13:19] LABS: Glucose Challenge Gest 1H 50g 132 mg/dL (70-140)
== END ==
PROVIDERS: Referring Provider Obstetrics & Gynecology; Visit Provider Obstetrics & Gynecology
DX: O09.90 Supervision of high risk pregnancy, unspecified, unspecified trimester (principal); Z13.1 Encounter for screening for diabetes mellitus; Z3A.00 Weeks of gestation of pregnancy not specified
CPT/HCPCS: 36415; 82950; 85025

== ENCOUNTER → 2020-09-28 13:03 | Outpatient (CLI) | payer OTHER, SELFPAY ==
[2020-08-03 08:20] VITALS: BMI 34.5
[2020-09-28 09:49] VITALS: BMI 35.1
--- NOTE | 2020-09-28 13:05 | US_ITS ---
STUDY: SECOND AND THIRD TRIMESTER OBSTETRICAL ULTRASOUND REASON FOR EXAM: Female, 30 years old 32 week growth ultrasound LMP: 02/19/2020 TECHNIQUE: Transabdominal TECHNICAL QUALITY: Adequate. PRIOR ULTRASOUND: None. FINDINGS: There is a single intrauterine fetus. The fetus is in a cephalic presentation. There is demonstrated cardiac activity with a heart rate of 132 bpm. There is a normal amniotic fluid volume. The largest amniotic fluid pocket measures 4.4 cm. The amniotic fluid index (CHIP) is 11.6 cm. The placenta is anterior in location and is not low lying. There are Grade 0 placental changes. The cervix measures 4.3 in length. The adnexal regions are not visualized. BIOMETRY: BPD: 8.1: 32 weeks, 4 days HC: 30.1: 33 weeks, 2 days AC: 30.8: 34 weeks, 5 days FL: 6.1: 31 weeks, 6 days CI: 82% FL/BPD: 76% HC/AC: 0.97 age by current US: 32 weeks, 3 days. ROMIE by current US: 11/20/2020. Estimated weight: 2208 grams, +/- 331 grams, 89 %. age by prior US: 32 weeks, 3 days. ROMIE by prior US: 11/20/2020. Age by LMP: 31 weeks, 5 days. ROMIE by LMP: 11/25/2020. US/OB Limited With Biometrics IMPRESSION: age by current US: 32 weeks, 3 days. ROMIE by current US: 11/20/2020. Estimated weight: 2208 grams, +/- 331 grams, 89 %. Electronically Signed: Matteo Horta MD at 13:39 EST Tel , Service support ,
== END ==
PROVIDERS: Referring Provider Obstetrics & Gynecology; Visit Provider Obstetrics & Gynecology
DX: O98.513 Other viral diseases complicating pregnancy, third trimester (principal); U07.1 COVID-19; Z3A.32 32 weeks gestation of pregnancy
CPT/HCPCS: 76816

== ENCOUNTER → 2020-10-26 08:43 | Outpatient (CLI) | payer OTHER, SELFPAY ==
[2020-08-03 08:20] VITALS: BMI 34.5
[2020-10-26 08:29] VITALS: BMI 36.0
--- NOTE | 2020-10-26 08:45 | US_ITS ---
STUDY: SECOND AND THIRD TRIMESTER OBSTETRICAL ULTRASOUND - LIMITED REASON FOR EXAM: Female, 30 years old routine survey LMP: 02/19/2020 PRIOR ULTRASOUND: 09/28/2020 TECHNIQUE: Transabdominal and Transvaginal TECHNICAL QUALITY: Adequate. FINDINGS: There is a single intrauterine fetus. The fetus is in an oblique presentation with the head on the maternal left side. There is demonstrated cardiac activity with a heart rate of 146 bpm. There is increased amniotic fluid volume consistent with polyhydramnios. The largest amniotic fluid pocket measures 8.93 cm. The amniotic fluid index (CHIP) is 27.84 cm. The placenta is anterior in location and is not low lying. There are Grade 0 placental changes. The cervix measures 5.2 cm in length. BIOMETRY: BPD: 9.14 cm: 37 weeks, 0 days HC: 32.92 cm: 37 weeks, 3 days AC: 34.03 cm: 37 weeks, 6 days FL: 6.96 cm: 35 weeks, 4 days Age by LMP: 35 weeks, 5 days. ROMIE by LMP: 11/25/2020. age by prior US: 36 weeks, 3 days. ROMIE by prior US: 11/20/2020. age by current US: 36 weeks, 6 days. ROMIE by current US: 11/17/20. Estimated weight: 3186 grams, +/- 478 grams, 88 percentile. US/OB Limited With Biometrics IMPRESSION: Single live intrauterine at 36 weeks, 6 days, with ROMIE of 11/17/2020. Heart rate of 146 bpm. Normal growth noted since the previous study. However, since the previous study, there is evidence of borderline polyhydramnios with total CHIP at 27.84 up from 11.6 on the previous study. There is no sonographic evidence to explain the increased amniotic fluid. Electronically Signed: Ant Emery MD at 9:08 EDT , Service support ,
== END ==
PROVIDERS: Referring Provider Obstetrics & Gynecology; Visit Provider Obstetrics & Gynecology
DX: O44.23 Partial placenta previa NOS or without hemorrhage, third trimester (principal); O98.513 Other viral diseases complicating pregnancy, third trimester; U07.1 COVID-19; Z3A.36 36 weeks gestation of pregnancy
CPT/HCPCS: 76816; 76817

== ENCOUNTER → 2020-10-29 07:46 | Outpatient (CLI) | payer OTHER, SELFPAY ==
[2020-10-26 08:29] VITALS: BMI 36.0
[2020-10-29 08:39] LABS: Hemoglobin A1c 4.6 % (3.8-5.6)
== END ==
PROVIDERS: Referring Provider Obstetrics & Gynecology; Visit Provider Obstetrics & Gynecology
DX: O40.9XX0 Polyhydramnios, unspecified trimester, not applicable or unspecified (principal); Z3A.00 Weeks of gestation of pregnancy not specified
CPT/HCPCS: 36415; 83036

== ENCOUNTER → 2020-11-02 11:55 | Outpatient (CLI) | payer OTHER, SELFPAY ==
[2020-10-26 08:29] VITALS: BMI 36.0
[2020-11-02 08:19] VITALS: BMI 36.6
--- NOTE | 2020-11-02 11:56 | US_ITS ---
STUDY: SECOND AND THIRD TRIMESTER OBSTETRICAL ULTRASOUND - LIMITED REASON FOR EXAM: Female, 30 years old polyhydramnios. LMP: 02/19/2020. PRIOR ULTRASOUND: Comparison is made with prior examination dated 10/26/2020. TECHNIQUE: Transabdominal TECHNICAL QUALITY: Adequate. FINDINGS: There is a single intrauterine fetus. The fetus is in a cephalic presentation. There is demonstrated cardiac activity with a heart rate of 134 bpm. There is a normal amniotic fluid volume. The largest amniotic fluid pocket measures 8 cm x 11.2 cm. The amniotic fluid index (CHIP) is 22.5 cm. This measures upper limits of normal. The placenta is fundal in location. There are Grade 1 placental changes. The cervix measures 3.8 cm in length. Age by LMP: 36 weeks, 5 days. ROMIE by LMP: 11/25/2020. age by prior US: 36 weeks, 6 days. ROMIE by prior US: 11/24/2020. US/OB Limited (No Biometrics) IMPRESSION: Amniotic fluid is upper limits of normal. Electronically Signed: Alex Harper MD at 15:03 EDT , Service support ,
== END ==
PROVIDERS: Referring Provider Obstetrics & Gynecology; Visit Provider Obstetrics & Gynecology
DX: O40.9XX0 Polyhydramnios, unspecified trimester, not applicable or unspecified (principal); O09.90 Supervision of high risk pregnancy, unspecified, unspecified trimester; Z3A.00 Weeks of gestation of pregnancy not specified
CPT/HCPCS: 76815; 87077; 87081; 87186

== ENCOUNTER → 2020-11-09 07:55 | Outpatient (CLI) | payer OTHER, SELFPAY ==
[2020-10-26 08:29] VITALS: BMI 36.0
[2020-11-02 08:19] VITALS: BMI 36.6
--- NOTE | 2020-11-09 07:57 | US_ITS ---
STUDY: SECOND AND THIRD TRIMESTER OBSTETRICAL ULTRASOUND - LIMITED REASON FOR EXAM: Female, 30 years old polyhydramnios. Amniotic fluid index. LMP: 02/19/2020. PRIOR ULTRASOUND: Comparison is made with prior study dated 11/02/2020. TECHNIQUE: Transabdominal TECHNICAL QUALITY: Adequate. FINDINGS: There is a single intrauterine fetus. The fetus is in an transverse lie with the head on the maternal left side. There is demonstrated cardiac activity with a heart rate of 125 bpm. There is a normal amniotic fluid volume. The largest amniotic fluid pocket measures 8.8 cm. The amniotic fluid index (CHIP) is 23.1 cm. The placenta is anterior in location and is not low lying. There are Grade 1 placental changes. The cervix measures 5.3 cm in length. US/OB Limited (No Biometrics) IMPRESSION: Amniotic fluid index of 23.1 cm. Electronically Signed: lAex Harper MD at 9:01 EDT , Service support ,
== END ==
PROVIDERS: Referring Provider Obstetrics & Gynecology; Visit Provider Obstetrics & Gynecology
DX: O40.9XX0 Polyhydramnios, unspecified trimester, not applicable or unspecified (principal); Z3A.00 Weeks of gestation of pregnancy not specified
CPT/HCPCS: 76815

== ENCOUNTER → 2020-11-16 07:53 | Outpatient (CLI) | payer OTHER, SELFPAY ==
[2020-10-26 08:29] VITALS: BMI 36.0
[2020-11-09 11:43] VITALS: BMI 36.1
--- NOTE | 2020-11-16 07:54 | US_ITS ---
STUDY: SECOND AND THIRD TRIMESTER OBSTETRICAL ULTRASOUND - LIMITED REASON FOR EXAM: Female, 30 years old poly LMP: 02/19/2020 PRIOR ULTRASOUND: 11/09/2020 TECHNIQUE: Transabdominal TECHNICAL QUALITY: Adequate. FINDINGS: There is a single intrauterine fetus. The fetus is in a cephalic presentation. There is demonstrated cardiac activity with a heart rate of 133 bpm. There is increased amniotic fluid volume consistent with polyhydramnios. The largest amniotic fluid pocket measures 7.8 cm. The amniotic fluid index (CHIP) is 24.6 cm. The placenta is anterior in location and is not low lying. There are Grade 1 placental changes. The cervix measures cm in length. Age by LMP: 38 weeks, 5 days. ROMIE by LMP: 11/25/2020. US/OB Limited (No Biometrics) IMPRESSION: Living intrauterine as described above. Polyhydramnios with an amniotic fluid index of 24.6 cm per Electronically Signed: Dudley Sanchez MD at 9:06 EDT Tel , Service support ,
== END ==
PROVIDERS: Referring Provider Obstetrics & Gynecology; Visit Provider Obstetrics & Gynecology
DX: O40.9XX0 Polyhydramnios, unspecified trimester, not applicable or unspecified (principal); Z3A.00 Weeks of gestation of pregnancy not specified
CPT/HCPCS: 76815

== ENCOUNTER → 2020-11-20 14:03 | Outpatient (CLI) | payer OTHER, SELFPAY ==
[2020-10-26 08:29] VITALS: BMI 36.0
[2020-11-16 14:35] VITALS: BMI 35.9
== END ==
PROVIDERS: PCP Family Medicine; Referring Provider Obstetrics & Gynecology; Visit Provider Obstetrics & Gynecology
DX: Z34.90 Encounter for supervision of normal pregnancy, unspecified, unspecified trimester (principal)
CPT/HCPCS: 87635; C9803; U0002

== ENCOUNTER 2020-11-20 19:10 | Inpatient (IN) | payer OTHER, SELFPAY ==
[2020-11-16 14:35] VITALS: BMI 35.9
[2020-11-20 19:17] VITALS: BMI 35.4
[2020-11-20 19:29] VITALS: PULSE 107; O2SAT 98
[2020-11-20] MEDS: Lactated Ringers 1,000 ML 50 ML IV (19:30)
[2020-11-20 19:33] VITALS: BP 133/80; PULSE 101
[2020-11-20 19:54] LABS: Absolute Lymphocyte Count 1.16 X10^3/uL (0.83-4.51); Absolute Neutrophil Count 4.9 X10^3/uL (2.0-7.7); Basophil# 0.01 X10^3/uL; Basophil% 0.2 % (0-1); Eosinophil# 0.04 X10^3/uL; Eosinophils% 0.6 % (0-5); Hematocrit 34.5 % (37-47); Hemoglobin 11.4 g/dL (12.0-15.0); Lymphocyte # 1.16 X10^3/ul (0.83-4.51); Lymphocyte % 17.6 % (19-41); Mean Corpuscular Hgb 29.9 pg (27.0-32.0); Mean Corpuscular Volume 90.6 fL (81-99); Mean Platelet Vol. 11.4 fl (6.2-12.0); Monocyte# 0.44 X10^3/uL; Monocyte% 6.7 % (0-10); NRBC Flagged by Analyzer 0 % (0-5); Neutrophil # 4.88 X10^3/uL (2.7-7.7); Neutrophil % 74.1 % (47-70); Platelet Count 205 K/mm3 (150-450); RBC Distribution Width CV 13.6 % (11.6-14.6); RBC Distribution Width SD 44.8 fl (35.1-43.9); Red Blood Count 3.81 M/mm3 (4.2-5.4); White Blood Count 6.6 K/mm3 (4.4-11.0)
[2020-11-20] MEDS: miSOPROStol 25 MCG TABLET VAGINAL (19:59)
--- NOTE | 2020-11-20 20:59 | HP.PCM.OB_ITS ---
HPI - General General Date of Admission: 11/20/20 HPI Narrative HILARIO GANT, is a 30 F who presents for IOL secondary to polyhydramnios. she has had a complicated by IVF infertility and covid infection in the beginning of . REPLACED BY [facility] Medical History (Updated 11/20/20 @ 21:[address] Lissett Ward MD) Conceived by in vitro fertilization Infertility Polyhydramnios Rheumatoid arthritis Home Medications prenat.vits,nery,rhe-lhwb-auzum 1 tab PO QDAY 07/20/17 [History Last Taken 10/22/17 21:00] aspirin 81 mg tablet,delayed release 81 mg PO DAILY 06/10/20 [History Last Taken Unknown] ferrous sulfate 325 mg (65 mg iron) tablet 325 mg PO DAILY 09/14/20 [History Last Taken Unknown] Allergy/AdvReac Type Severity Reaction Status Date / Time amoxicillin Allergy Intermediate Rash Verified 11/16/20 14:35 Surgical History History of ankle surgery History of appendectomy Social History Smoking Status: Never smoker alcohol intake: never substance use type: does not use caffeine: No what type of physical activity do you participate in: walking seatbelt use: always do you feel safe at home: Yes additional social history: [employer]- [employer] at [employer] 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 History 2 Elective abortions Hx Para 1 Spontaneous abortions 1 Hx # Term Pregnancies 1 Ectopic pregnancies Hx # Pregnancies Multiple births # of living children 1 NST FHR Rate Baby A Baseline: 140 Variability:: Moderate Accelerations:: None Decelerations:: None NST Reactive:: Appropriate for gestational age and Non-Reactive ROS Review of Systems ROS Unobtainable: due to mental status and other Constitutional Constitutional: Reports systems reviewed and no addt'l complaints, except as documented; Denies as per HPI, change in weight, fatigue, fever(s), malaise, weakness or other Eyes Eyes: Reports systems reviewed and no addt'l complaints, except as documented; Denies as per HPI, change in vision or other ENT HEENT: Reports as per HPI; Denies dizziness, dry mouth, headache(s), loss taste/smell, nasal congestion, nasal discharge, neck pain, sore throat or other Respiratory/Chest Respiratory/Chest: Reports systems reviewed and no addt'l complaints, except as documented Gastrointestinal Gastrointestinal: Reports systems reviewed and no addt'l complaints, except as documented; Denies abdominal pain, nausea or vomiting Musculoskeletal Musculoskeletal: Reports systems reviewed and no addt'l complaints, except as documented; Denies back pain or joint pain Integumentary Integumentary: Reports systems reviewed and no addt'l complaints, except as documented Neurologic Neurologic: Reports systems reviewed and no addt'l complaints, except as documented Psychiatric Psychiatric: Reports systems reviewed and no addt'l complaints, except as documented Endocrine Endocrinology: Reports systems reviewed and no addt'l complaints, except as documented Hematologic/Lymphatic Hematologic/Lymphatic: Reports systems reviewed and no addt'l complaints, except as documented Vital Signs Vital Signs Vital Signs: 11/20/20 19:29 11/20/20 19:33 Pulse Rate 107 H 101 H Blood Pressure 133/80 H BP Systolic 133 BP Diastolic 80 Pulse Ox 98 Physical Exam Const alert, oriented x3 and no apparent distress HEENT normocephalic Head and Scalp: atraumatic Eyes EOMs intact bilaterally and conjunctivae normal Neck full ROM, no lymphadenopathy, supple and thyroid normal General: trachea midline Lymph Lymphatic: no lymphadenopathy noted Chest inspection of chest normal, palpation of chest normal, inspection of breasts normal and palpation of breasts normal Breast/Axilla Inspection: normal inspection of the axillae Breast/Axilla Palpation: normal palpation of the axillae and no axillary lymphadenopathy Resp normal respiratory effort, no retractions, no use of accessory muscles and clear to auscultation bilaterally Cardio regular rate and regular rhythm GI normal to inspection, nondistended, normoactive bowel sounds, soft to palpation, non-tender, non-distended and no masses external exam normal, appearance of the vagina normal, appearance of the cervix normal, bimanual exam normal, adnexae non-tender and no adnexal masses Back/Spine no CVA tenderness Extremity normal to inspection Skin no rashes or lesions noted Neuro moves all extremities and deep tendon reflexes 2+ bilaterally Motor Exam: clonus absent and clonus present Psych mental status grossly normal Assessment & Plan Assessment/Plan (1) Supervision of high risk , antepartum: Status: Acute Code(s): O09.90 - Supervision of high risk , unspecified, unspecified trimester (2) : Status: Acute Code(s): Z34.90 - Encounter for supervision of normal , unspecified, unspecified trimester Qualifiers: Weeks of gestation: 36 weeks Qualified Code(s): Z3A.36 - 36 weeks gestation of (3) Conceived by in vitro fertilization: Status: Acute Code(s): Z78.9 - Other specified health status (4) Polyhydramnios affecting : Status: Acute Code(s): O40.9XX0 - Polyhydramnios, unspecified trimester, not applicable or unspecified (5) Iron (Fe) deficiency anemia: Status: Acute Code(s): D50.9 - Iron deficiency anemia, unspecified Qualifiers: Iron deficiency anemia type: unspecified iron deficiency Qualified Code(s): D50.9 - Iron deficiency anemia, unspecified (6) Positive GBS test: Status: Acute Code(s): B95.1 - Streptococcus, group B, as the cause of diseases classified elsewhere (7) 36 weeks gestation of : Status: Acute Code(s): Z3A.36 - 36 weeks gestation of (8) History of juvenile rheumatoid arthritis: Status: Chronic Code(s): Z87.39 - Personal history of other diseases of the musculoskeletal system and connective tissue (9) Encounter for induction of labor: Status: Acute Code(s): Z34.90 - Encounter for supervision of normal , unspecified, unspecified trimester Plan: Patient presents IOL, plan management for with .cytotec then pitocin Pain management: plans epidural. GBS .os- Ancef Management of any complications: polyhydramnios I have reviewed the REPLACED BY [facility] and made any clinically relevant updates.
[2020-11-20 22:25] VITALS: BP 118/76; PULSE 85; TEMP 37.2
[2020-11-21] VITALS (59 sets, daily range): BP systolic 89–139; BP diastolic 51–87; PULSE 68–111; TEMP 36.2–37.2; O2SAT 81–99
[2020-11-21] MEDS: miSOPROStol 25 MCG TABLET VAGINAL ×3 (00:20→08:10)
[2020-11-21] MEDS: Acetaminophen 325 MG Tablet PO (00:27)
[2020-11-21] MEDS: fentaNYL 100 MCG/2 ML Ampul IV ×3 (05:20→11:59)
[2020-11-21] MEDS: 0.9% Saline Lock 10 ML Syringe IV ×2 (05:20→12:00)
[2020-11-21] MEDS: Lactated Ringers 500 ML 999 ML IV ×3 (11:04→22:33)
[2020-11-21] MEDS: fentaNYL-bupivacaine (epidural) 100 ML BAG EPIDURAL ×3 (13:40→22:14)
[2020-11-21] MEDS: Oxytocin 30 units/NS 500 ml 30 UNITS/500 ML IV.SOLN IV (14:07)
[2020-11-21] MEDS: 0.9% Normal Saline Single 100 ML IV.SOLN. INTRA-UTER (15:40)
[2020-11-21] MEDS: Lactated Ringers 1,000 ML 200 ML IV ×2 (15:54→21:19)
[2020-11-21] MEDS: Cefazolin 2 GM in 0.9% Normal Saline 100 ML IV (16:28)
--- NOTE | 2020-11-21 19:50 | NURSING ---
cath placed by Maria Del Rosario Espino RN
[2020-11-22] VITALS (42 sets, daily range): BP systolic 91–120; BP diastolic 51–77; PULSE 71–122; RESP 16–20; TEMP 35.9–37.6; O2SAT 95–100
[2020-11-22] MEDS: Cefazolin 1 GM/50 ML BAG IV ×3 (00:22→14:00)
[2020-11-22] MEDS: Ondansetron 4 MG/2 ML Vial IV (01:43)
--- NOTE | 2020-11-22 01:43 | PCM.PN.BLA ---
Progress Note Status post Cytotec and Pitocin with Rodriguez bulb. heart tones 140 moderate variability reactive no decelerations category 1 tracing toco q. 2 to 5-minute contractions reviewed tracing abnormalities since last note: A few isolated mild variable decelerations reassuring no significant A/P: AROM clear fluid large amount continue induction of labor for polyhydramnios continue Ancef for GBS positive
[2020-11-22] MEDS: fentaNYL-bupivacaine (epidural) 100 ML BAG EPIDURAL ×2 (03:42→07:58)
[2020-11-22] MEDS: Lactated Ringers 500 ML 999 ML IV (04:02)
[2020-11-22] MEDS: Lactated Ringers 1,000 ML 200 ML IV ×2 (04:05→10:20)
[2020-11-22] MEDS: 0.9% Normal Saline 250 ML IV.SOLN. 500 ML INTRA-UTER (08:52)
[2020-11-22] MEDS: Sodium Citrate/Citric Acid 30 ML UDC PO (13:25)
[2020-11-22] MEDS: Methylergonovine 0.2 MG/ML Ampul IM (14:06)
--- NOTE | 2020-11-22 14:43 | EX.PCM.OBRPT ---
Report of Operation (OB) Information ROMIE Calculator Estimated Delivery Date Method Current WG Current Estimate 11/25/20 Manual 39w 4d Induction Maternal Presentation: Medically Indicated Induction (Polyhydramnios) Type of Induction: Pitocin, Rodriguez Bulb, Amniotomy and Cytotec Indication Classification: Stat Procedure Type: low transverse Indications: failed vacuum Findings Description of Procedure: 30-year-old G3, P1 at 39 weeks presented for induction of labor secondary to polyhydramnios. Patient underwent Cytotec followed by Pitocin and Rodriguez bulb induction of labor proceeded to complete dilation and began pushing. Patient had recurrent periodic mild to moderate variables patient began pushing. After pushing the head was down to the +2 to +3 station. She had history of vaginal delivery with her previous infant however due to abnormal prolonged labor progress and asynclitic presentation of the head the decision for a double set up was made to be able to abort vacuum delivery if unsuccessful. Patient had been counseled regarding the risk of scalp hematoma or failed vacuum would mean proceeding with immediate section. Patient agreed to proceed with attempted vacuum. But and a block was placed back in the room and attempted delivery was done be a double set up in the OR. Gender was Betadine prepped. It was felt to be LOP but asynclitic, a Kiwi vacuum was used with pressure within the green zone, vacuum was applied and 2-1/2 pulls were made with 1 pop-off with no additional pulls after the pop-off and minimal descent and therefore the procedure was aborted and the decision to proceed with a primary was made.. Patient was prepped and draped in the normal sterile fashion. Pfannenstiel skin incision was made with the scalpel and carried through to the underlying layer of fascia with the scalpel. Fascia was nicked in the midline and the incision extended laterally. The rectus bellies were dissected off inferiorly with out complication both sharply and bluntly. The peritoneum was entered digitally. The incision was stretched and a low transverse uterine incision was made with the scalpel. The 's head was delivered atraumatically followed by the anterior and posterior shoulders without complication the rest of the delivered. The cord was clamped and cut and the was handed off to awaiting nurse. The placenta was delivered spontaneously immediately following and was noted to be intact and have a three-vessel cord. The uterus was exteriorized cleared of all clots and debris, and the incision was closed in a double layer closure using #1 Monocryl. The ovaries and fallopian tubes were noted to be within normal limits. The uterus was returned to the maternal abdomen and gutters were cleared of all clots and debris. The peritoneum was closed with 3-0 Monocryl in a running fashion. Gloves were changed prior to fascial closure. Fascia was closed with 0 PDS in a running fashion. Subcutaneous tissue was copiously irrigated and the skin was closed with 3-0 Monocryl in a subcuticular fashion. Mepilex dressing was applied without complication. Patient was taken to recovery in stable condition. Surgery/ Procedure Performed: Vacuum Assisted Vaginal Delivery (failed) Presentation: Positive for ROP Amniotic Membrane Rupture Type: Artificial Amniotic Fluid Description: - (Terminal meconium) Cord Vessel Description: 3 Vessels Cord Entanglement: Around neck x 2, tight Nuchal Cord Compression: With compression Cord Gases: ABG and VBG Infant Gender: Male (1 minute): 8 (5 minute): 9 Delayed Cord Clamping: Yes Drain: Rodriguez to straight drain Medications Given Antibiotic Given: Ancef 2 grams IV x1 Medications Given After Delivery: IV Pitocin and IM Methergin Post Vaginal Delivery Episiotomy Description: None Laceration: None Complications Risks of Surgery Discussed w/Patient: Bleeding, Anesthesia Risks, Infection and Injury to surrounding structure(s) including bowel and bladder Baby B Information Amniotic Membrane Rupture Type: Artificial Operative Information Cord Entanglement: Around neck x 2, tight Cord Vessel Description: 3 Vessels (1 minute): 8 (5 minute): 9 Procedures Urinary/Genital [id number]: [id number] Delivery [facility]
[2020-11-22] MEDS: Oxytocin 30 units/NS 500 ml 30 UNITS/500 ML IV.SOLN 167 UNITS IV (14:45)
--- NOTE | 2020-11-22 15:10 | PCM.DC.SUM ---
Documented by User: Dr. Lissett Ward MD 11/24/20 09:19 Providers Date of Admission: 11/20/20 Primary Care Physician: Dr. Jacob Pinon DO Reason For Visit: PRIMARY C SECTION Diagnosis Discharge Diagnosis (1) Supervision of high risk , antepartum: Status: Resolved Code(s): O09.90 - Supervision of high risk , unspecified, unspecified trimester (2) : Status: Resolved Code(s): Z34.90 - Encounter for supervision of normal , unspecified, unspecified trimester Qualifiers: Weeks of gestation: 36 weeks Qualified Code(s): Z3A.36 - 36 weeks gestation of (3) Conceived by in vitro fertilization: Status: Resolved Code(s): Z78.9 - Other specified health status (4) Polyhydramnios affecting : Status: Resolved Code(s): O40.9XX0 - Polyhydramnios, unspecified trimester, not applicable or unspecified (5) Iron (Fe) deficiency anemia: Status: Resolved Code(s): D50.9 - Iron deficiency anemia, unspecified Qualifiers: Iron deficiency anemia type: unspecified iron deficiency Qualified Code(s): D50.9 - Iron deficiency anemia, unspecified (6) Positive GBS test: Status: Resolved Code(s): B95.1 - Streptococcus, group B, as the cause of diseases classified elsewhere (7) 36 weeks gestation of : Status: Resolved Code(s): Z3A.36 - 36 weeks gestation of (8) History of juvenile rheumatoid arthritis: Status: Resolved Code(s): Z87.39 - Personal history of other diseases of the musculoskeletal system and connective tissue (9) Encounter for induction of labor: Status: Resolved Code(s): Z34.90 - Encounter for supervision of normal , unspecified, unspecified trimester Medications at Discharge Home Medications prenat.vits,nery,etv-unfx-ktwrg 1 tab PO QDAY 07/20/17 aspirin 81 mg tablet,delayed release 81 mg PO DAILY 06/10/20 ferrous sulfate 325 mg (65 mg iron) tablet 325 mg PO DAILY 09/14/20 naproxen 250 - 500 mg PO Q8H PRN PRN #30 tab 11/21/20 oxycodone-acetaminophen [Endocet] 1 tab PO Q4H PRN 7 Days #20 tab 11/22/20 Hospital Course Operations - () Summary of Care Provided Hospital Course: 30-year-old G3, P1 at 39 weeks was induced for polyhydramnios and proceeded to complete dilation after Cytotec, Pitocin, and Rodriguez bulb. Patient developed recurrent variable decelerations and had a previous vaginal delivery and station was +2 to +3 was pushing and therefore the decision to attempt vacuum delivery was made and failed and therefore decision was made to proceed with primary section which was performed without complication. Postoperatively patient had return of bowel and bladder function and was ambulating well, tolerating adequate p.o., and was stable for discharge to home on postop day #2. Discharge medications naproxen and Percocet. Follow-up in office in 2 weeks for incision check in 6 weeks for visit. Routine post section diet and activity instructions. ABG / Lab / Microbiology Data Result Diagrams: 11/23/20 06:05 D/C Instructions Discharge Diet: No restrictions Discharge Activity: May Not Drive (for 2 weeks), May not drive while taking narcotic pain medications., May Shower and May Take a Tub Bath (in 7 days) May shower in (days): 0 May resume sexual activity in: 4-6 weeks Weight Bearing Status: Full weight bearing Call your doctor if your incision/area has: Continuous Slow Oozing, Sudden Increased Bleeding, Increased Pain/ Swelling, Increased Redness and Foul Smelling Discharge Call your doctor if you observe: Fever of 101 or Higher and Using more than one pad per hour (for 2 hours) Suture Line Care: Avoid Pulling/Pushing and Avoid Pinching/Bending Cleanse incision/area with: Soap & Water and Keep Dressing Clean & Dry Please Follow Up With: Lissett Ward MD When: Call [phone] to make an appointment for an incision check in 1-2 weeks. Meaningful Use Info Meaningful Use Diagnoses (Choose all that apply): None applicable Discharge Plan Admission Admit Date/Time: 11/20/20 19:10 Primary Reason for Your Visit: induction polyhydramnios, vaginal delivery Attending Provider: Lissett Ward Primary Care Provider: Jacob Pinon Discharge Orders/Prescriptions Prescriptions: New naproxen 250 MG tablet 250 - 500 mg PO Q8H PRN PRN (Reason: MILD PAIN) Qty: 30 RF: 1 oxycodone-acetaminophen [Endocet] 5-325 mg tablet 1 tab PO Q4H PRN (Reason: pain) 7 Days Qty: 20 RF: 0 No Action prenat.vits,nery,zzm-vkyk-groic [ Vitamin] tablet 1 tab PO QDAY RF: 0 aspirin 81 mg tablet,delayed release (DR/EC) 81 mg PO DAILY RF: 0 ferrous sulfate 325 mg (65 mg iron) tablet 325 mg PO DAILY RF: 0 Referrals: Jacob Pinon DO [Primary Care Provider] - Disposition Disposition (needs filled in before D/C Order can be placed): Home, self care Documented by User: Deana Camacho NP, [employer] 11/24/20 09:44 Providers Date of Admission: 11/20/20 Reason For Visit: PRIMARY C SECTION Medications at Discharge Home Medications prenat.vits,nery,dps-thec-okokg 1 tab PO QDAY 07/20/17 aspirin 81 mg tablet,delayed release 81 mg PO DAILY 06/10/20 ferrous sulfate 325 mg (65 mg iron) tablet 325 mg PO DAILY 09/14/20 naproxen 250 - 500 mg PO Q8H PRN PRN #30 tab 11/21/20 oxycodone-acetaminophen [Endocet] 1 tab PO Q4H PRN 7 Days #20 tab 11/22/20 ABG / Lab / Microbiology Data Result Diagrams: 11/23/20 06:05 D/C Instructions Discharge Diet: No restrictions Discharge Activity: May Not Drive (for 2 weeks or while taking narcotic pain meds.), May Shower and May Take a Tub Bath (in 7 days.) May resume sexual activity in: 4-6 weeks Additional Activity Instructions: Nothing in the vagina for 4-6 weeks. You may return to work/school in 6 weeks. Call your doctor if your incision/area has: Continuous Slow Oozing, Sudden Increased Bleeding, Increased Pain/ Swelling, Increased Redness and Foul Smelling Discharge Call your doctor if you observe: Fever of 101 or Higher Suture Line Care: Avoid Pulling/Pushing and Avoid Pinching/Bending Discharge Plan Admission Admit Date/Time: 11/20/20 19:10 Primary Reason for Your Visit: induction polyhydramnios, vaginal delivery Attending Provider: Lissett Ward Primary Care Provider: Jacob Pinon Discharge Orders/Prescriptions Prescriptions: New naproxen 250 MG tablet 250 - 500 mg PO Q8H PRN PRN (Reason: MILD PAIN) Qty: 30 RF: 1 oxycodone-acetaminophen [Endocet] 5-325 mg tablet 1 tab PO Q4H PRN (Reason: pain) 7 Days Qty: 20 RF: 0 No Action prenat.vits,nery,yvw-hsgk-ogjaa [ Vitamin] tablet 1 tab PO QDAY RF: 0 aspirin 81 mg tablet,delayed release (DR/EC) 81 mg PO DAILY RF: 0 ferrous sulfate 325 mg (65 mg iron) tablet 325 mg PO DAILY RF: 0 Referrals: Jacob Pinon, [Primary Care Provider] - Disposition Disposition (needs filled in before D/C Order can be placed): Home, self care
[2020-11-22] MEDS: Ketorolac 30 MG/ML Syringe IV ×2 (15:11→21:55)
[2020-11-22] MEDS: Acetaminophen 500 MG Tablet 1000 MG PO ×2 (15:20→21:55)
--- NOTE | 2020-11-22 17:00 | NURSING ---
Epidural catheter removed. Blue tip intact. patient tolerated well.
[2020-11-22] MEDS: Lactated Ringers 1,000 ML 100 ML IV (18:00)
[2020-11-23 00:15] VITALS: PULSE 85; RESP 16
--- NOTE | 2020-11-23 01:42 | NURSING ---
Pt catheter removed at 0130 on 11/23/20
[2020-11-23] MEDS: Ketorolac 30 MG/ML Syringe IV ×2 (03:54→09:39)
[2020-11-23] MEDS: Acetaminophen 500 MG Tablet 1000 MG PO ×4 (03:54→22:06)
[2020-11-23 03:59] VITALS: BP 91/52; PULSE 71; RESP 16; TEMP 36.8
[2020-11-23 06:17] LABS: Hematocrit 30.2 % (37-47); Hemoglobin 9.8 g/dL (12.0-15.0); Mean Corp Hgb Conc 32.5 g/dL (32-36); Mean Corpuscular Volume 92.4 fL (81-99); Mean Platelet Vol. 10.9 fl (6.2-12.0); Platelet Count 197 K/mm3 (150-450); RBC Distribution Width CV 13.7 % (11.6-14.6); RBC Distribution Width SD 46.3 fl (35.1-43.9); Red Blood Count 3.27 M/mm3 (4.2-5.4); White Blood Count 14.8 K/mm3 (4.4-11.0)
[2020-11-23] MEDS: Enoxaparin 40 MG/0.4 ML Syringe SC (06:33)
--- NOTE | 2020-11-23 07:58 | PCM.PN.OB ---
Subjective Subjective: Patient doing well without complaints. Has been up and showered. Tolerating PO. Ambulating and voiding without difficulty. Breast feeding well. Baby SCN. Denies chest pain, shortness of breath, calf pain/swelling, fevers, chills, lightheadedness. Objective Data Objective Data Vital Signs: Vital Signs Temp Pulse Resp BP Pulse Ox 98.2 F 71 16 91/52 L 98 11/23/20 03:59 11/23/20 03:59 11/23/20 03:59 11/23/20 03:59 11/22/20 22:44 Oxygen Delivery Method Room Air Weight: 200 lb 3.2 oz Body Mass Index (BMI) 35.4 Intake & Output: Intake and Output for Last 24 Hours 11/21/20 11/22/20 11/23/20 23:59 23:59 23:59 Intake Total 3837.29 / 3837.29 4820.16 / 4820.16 Output Total 400 / 400 2600 / 2600 200 / 200 Balance 3437.29 / 3437.29 2220.16 / 2220.16 -200 / -200 Lab / Micro Data Result Diagrams: 11/23/20 06:05 Labs: Laboratory Results - last 24 hr 11/23/20 06:05 WBC 14.8 H RBC 3.27 L Hgb 9.8 L Hct 30.2 L MCV 92.4 MCH 30.0 MCHC 32.5 RDW Std Deviation 46.3 H RDW Coeff of Ling 13.7 Plt Count 197 MPV 10.9 Physical Exam Const alert and oriented x3 GI soft to palpation GI Narrative: Dressing dry and intact with small old drainage only. FF below U Assessment & Plan Assessment/Plan (1) Failed vacuum extraction delivery: Status: Acute Code(s): O66.5 - Attempted application of vacuum extractor and forceps (2) Delivery by section: Status: Acute Plan: s/p LTCS PPD # 1 1. routine post care 2. breast feeding- support given 3. rh positive 4. rubella immune
[2020-11-23 09:36] VITALS: BP 109/66; PULSE 81; RESP 14; TEMP 36.1
[2020-11-23 13:29] VITALS: BP 86/56; PULSE 70; RESP 14; TEMP 36.6
[2020-11-23] MEDS: Senna/Docusate Sodium 1 Tablet PO (15:19)
[2020-11-23] MEDS: Naproxen 250 MG Tablet 500 MG PO ×2 (15:20→22:40)
[2020-11-23 22:42] VITALS: BP 108/74; PULSE 85; RESP 18; TEMP 36.6
[2020-11-24 04:40] VITALS: BP 112/69; PULSE 80; RESP 18; TEMP 36.3
[2020-11-24] MEDS: Acetaminophen 500 MG Tablet 1000 MG PO ×3 (04:40→17:21)
[2020-11-24] MEDS: Enoxaparin 40 MG/0.4 ML Syringe SC (07:40)
[2020-11-24] MEDS: Naproxen 250 MG Tablet 500 MG PO ×2 (07:43→16:35)
--- NOTE | 2020-11-24 07:58 | PCM.PN.OB ---
Subjective Subjective: Patient doing well without complaints. Tolerating PO. Ambulating and voiding without difficulty. Breast feeding well. Denies chest pain, shortness of breath, calf pain/swelling, fevers, chills, lightheadedness. Baby still in SCN, hopeful for discharge tomorrow. Patient to hotel status today. Objective Data Objective Data Vital Signs: Vital Signs Temp Pulse Resp BP Pulse Ox 97.4 F L 80 18 112/69 98 11/24/20 04:40 11/24/20 04:40 11/24/20 04:40 11/24/20 04:40 11/22/20 22:44 Oxygen Delivery Method Room Air Weight: 200 lb 3.2 oz Body Mass Index (BMI) 35.4 Intake & Output: Intake and Output for Last 24 Hours 11/22/20 11/23/20 11/24/20 23:59 23:59 23:59 Intake Total 4820.16 / 4820.16 Output Total 2600 / 2600 200 / 200 Balance 2220.16 / 2220.16 -200 / -200 Lab / Micro Data Result Diagrams: 11/23/20 06:05 Physical Exam Const alert, oriented x3 and well nourished Exam Limitations: no limitations Neck full ROM Resp normal respiratory effort GI soft to palpation Palpation: tender other (appropriately) and other Other Details: incision dry and intact. FF below U Assessment & Plan Assessment/Plan (1) Delivery by section: Status: Acute (2) Failed vacuum extraction delivery: Status: Acute Code(s): O66.5 - Attempted application of vacuum extractor and forceps Plan: s/p LTCS PPD # 2 1. routine post care 2. breast feeding- support given 3. rh positive 4. rubella immune 5. Hotel status today.
[2020-11-24 09:00] VITALS: BP 129/74; PULSE 96; RESP 16; TEMP 36.4; O2SAT 96
[2020-11-24 16:00] VITALS: BP 129/78; PULSE 96; RESP 16; TEMP 36.9; O2SAT 97
[2020-11-24 20:08] VITALS: BP 104/76; PULSE 80; RESP 16; TEMP 36.9
[2020-11-25] MEDS: Acetaminophen 500 MG Tablet 1000 MG PO ×2 (00:26→06:07)
[2020-11-25] MEDS: Naproxen 250 MG Tablet 500 MG PO (00:26)
[2020-11-25 00:27] VITALS: BP 108/66; PULSE 85; RESP 18; TEMP 36.6
[2020-11-25 06:08] VITALS: BP 114/76; PULSE 83; RESP 16; TEMP 36.3
--- NOTE | 2020-11-25 07:46 | PCM.PN.OB ---
Subjective Subjective: Patient doing well without complaints. Tolerating PO. Ambulating and voiding without difficulty. breast feeding well. Denies chest pain, shortness of breath, calf pain/swelling, fevers, chills, lightheadedness. Objective Data Objective Data Vital Signs: Vital Signs Temp Pulse Resp BP Pulse Ox 97.4 F L 83 16 114/76 97 11/25/20 06:08 11/25/20 06:08 11/25/20 06:08 11/25/20 06:08 11/24/20 16:00 Oxygen Delivery Method Room Air Weight: 200 lb 3.2 oz Body Mass Index (BMI) 35.4 Intake & Output: Intake and Output for Last 24 Hours 11/23/20 11/24/20 11/25/20 23:59 23:59 23:59 Output Total 200 / 200 Balance -200 / -200 Lab / Micro Data Result Diagrams: 11/23/20 06:05 Physical Exam Const oriented x3 Neck full ROM Resp normal respiratory effort GI soft to palpation and non-distended GI Narrative: Dressing dry and intect. FF below U Palpation: tender and other Other Details: appropriately Assessment & Plan Assessment/Plan (1) Delivery by section: Status: Acute (2) Failed vacuum extraction delivery: Status: Acute Code(s): O66.5 - Attempted application of vacuum extractor and forceps Plan: s/p LTCS PPD # 3 1. routine post care 2. breast feeding- support given 3. rh positive 4. rubella immune 5. Patient and infant home today
[2020-11-25 07:47] VITALS: BP 128/86; PULSE 84; RESP 18; TEMP 36.7
--- NOTE | 2020-11-25 10:51 | NURSING ---
1030 dc instructions given to patient, she denies any needs. took personal belongings to the car, baby is being discharged from the [facility] at this time as well.
== END 2020-11-25 10:35 | disposition home or self-care (01) | DRG 787 ==
PROVIDERS: Obstetrics & Gynecology; Admitting Provider Obstetrics & Gynecology; PCP Family Medicine; Referring Provider Obstetrics & Gynecology; Visit Provider Obstetrics & Gynecology
DX: O76 Abnormality in fetal heart rate and rhythm complicating labor and delivery (principal); O63.9 Long labor, unspecified; O66.5 Attempted application of vacuum extractor and forceps; Z37.0 Single live birth; O99.824 Streptococcus B carrier state complicating childbirth; O40.3XX0 Polyhydramnios, third trimester, not applicable or unspecified; Z3A.39 39 weeks gestation of pregnancy; Z86.16 Personal history of COVID-19; M08.00 Unspecified juvenile rheumatoid arthritis of unspecified site; O99.02 Anemia complicating childbirth; D50.9 Iron deficiency anemia, unspecified; O69.1XX0 Labor and delivery complicated by cord around neck, with compression, not applicable or unspecified; O77.0 Labor and delivery complicated by meconium in amniotic fluid
CPT/HCPCS: 59025; 59050; 76815; 85025; 85027; 86850; 86900; 86901; 99218; J7050; J7120; A4216; G0378; J2405

== ENCOUNTER → 2022-08-18 | Outpatient (CLI) | payer OTHER, SELFPAY ==
[2022-08-18 10:06] LABS: hCG Titer Quant., Serum < 1 mIU/mL (1-3)
[2022-08-18 10:36] LABS: HIV - WCH Non-Reactive (Nonreactive); Hepatitis B Surface Antigen Non-Reactive (Nonreactive); Hepatitis C Antibody Non-Reactive (Nonreactive); Progesterone Level 0.32 ng/mL (See Comment); Rubella IgG Reactive (Nonreactive); Syphilis Antibodies Non-reactive
[2022-08-18 11:30] LABS: Chlamydia Trachomatis by PCR Negative (Negative); Neisserai gonorrhoeae by PCR Negative (Negative); Probe Check PASS; Sample Adequacy Control PASS; Specimen Processing Control PASS
[2022-08-18 14:00] LABS: Hemoglobin A1c 4.7 % (3.8-5.6)
[2022-08-18 15:05] LABS: Thyroid Stim Hormone (TSH) 3.02 uIU/mL (0.358-3.74)
[2022-08-20 14:18] LABS: V-Zoster IgG (Immunity) 1758 index (Immune >165)
== END | disposition home or self-care (01) ==
LOC: LAB 08:22
PROVIDERS: PCP Family Medicine; Referring Provider Obstetrics & Gynecology Reproductive Endocrinology; Visit Provider Obstetrics & Gynecology Reproductive Endocrinology
DX: Z01.84 Encounter for antibody response examination (principal); N97.0 Female infertility associated with anovulation; Z13.29 Encounter for screening for other suspected endocrine disorder; E03.9 Hypothyroidism, unspecified; Z11.3 Encounter for screening for infections with a predominantly sexual mode of transmission; R73.09 Other abnormal glucose; Z11.59 Encounter for screening for other viral diseases
CPT/HCPCS: 36415; 83036; 84144; 84443; 84702; 86703; 86762; 86780; 86787; 86803; 86850; 87340; 87491; 87591

== ENCOUNTER → 2022-08-22 | Outpatient (CLI) | payer OTHER, SELFPAY ==
[2022-08-22 12:31] LABS: T4 Free Direct 0.86 ng/dL (0.76-1.46)
[2022-08-23 20:44] LABS: Thyroid Peroxidase AB < 9 IU/mL (0-34)
== END | disposition home or self-care (01) ==
LOC: BIMLAB 11:06
PROVIDERS: PCP Family Medicine; Visit Provider Obstetrics & Gynecology Reproductive Endocrinology
DX: E03.9 Hypothyroidism, unspecified (principal); Z13.29 Encounter for screening for other suspected endocrine disorder
CPT/HCPCS: 36415; 84439; 84443; 86376

== ENCOUNTER → 2022-10-31 | Outpatient (CLI) | payer OTHER, SELFPAY ==
[2022-10-31 09:09] LABS: hCG Titer Quant., Serum 5 mIU/mL (1-3)
== END | disposition home or self-care (01) ==
PROVIDERS: PCP Family Medicine; Visit Provider Obstetrics & Gynecology Reproductive Endocrinology
DX: O09.811 Supervision of pregnancy resulting from assisted reproductive technology, first trimester (principal); Z3A.00 Weeks of gestation of pregnancy not specified
CPT/HCPCS: 36415; 84702

== ENCOUNTER → 2022-11-02 | Outpatient (CLI) | payer OTHER, SELFPAY ==
[2022-11-02 11:00] LABS: hCG Titer Quant., Serum 1 mIU/mL (1-3)
== END | disposition home or self-care (01) ==
LOC: BIMLAB 09:20
PROVIDERS: PCP Family Medicine; Referring Provider Obstetrics & Gynecology Reproductive Endocrinology; Visit Provider Obstetrics & Gynecology Reproductive Endocrinology
DX: O09.01 Supervision of pregnancy with history of infertility, first trimester (principal); Z3A.00 Weeks of gestation of pregnancy not specified
CPT/HCPCS: 36415; 84702

== ENCOUNTER → 2023-06-14 | Outpatient (CLI) | payer BC, SELFPAY ==
[2023-06-21 12:08] LABS: HPV APTIMA, High Risk Negative (Negative)
== END | disposition home or self-care (01) ==
LOC: LABSPEC 16:45
PROVIDERS: Visit Provider Obstetrics & Gynecology
DX: Z12.4 Encounter for screening for malignant neoplasm of cervix (principal)
CPT/HCPCS: 87624; 88175; G0145

== ENCOUNTER → 2023-09-07 | Outpatient (CLI) | payer BC, SELFPAY ==
--- OUTSIDE RECORDS SUMMARY | 2023-09-07 08:12 | XMS RPT_ITS | CCD ---
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 Name Role Phone Lissett Ward MD Unavailable [phone] L[address]SET[address] WARD SHARON E Unavailable Treasure [facility] Unavailable Unavailable Medications Completed/Discontinued Medications Medication Drug Class(es) Dates Sig (Normalized) Sig (Original) ferrous sulfate 325 mg oral tablet (3 sources) Start: 05-26-2017 FEOSOL 325 (65 Fe) MG TABS FERROUS SULFATE [id number] Lissett Ward MD VIT-FE FUMARATE-FA (3 sources) Start: 05-26-2017 VITAMIN 27-0.8 MG TABS VIT-FE FUMARATE-FA [id number] Lissett Ward MD Problems Problem Classification Problem Date Documented Da te Episodic/Chronic Normal and/or delivery (19 sources) Gestation period, 23 weeks; Translations: [Gestation period, 19 weeks] Onset: 02-24-2017 06-23-2017 Episodic Results Test Name Value Interpretation Reference Range Facil ity Vital Signs Date Time Vital Sign Value Performing Clinician Faci lity 06-23-2017 12:12-0500 BMI (Body Mass Index) 30.54 kg/m2 Lissett Ward MD [facility] 06-23-2017 12:12-0500 BP Diastolic 78 mm[Hg] Lissett Ward MD [facility] 06-23-2017 12:12-0500 BP Systolic 128 mm[Hg] Lissett Ward MD [facility] 06-23-2017 12:12-0500 Weight 78.2 kg Lissett Ward MD [facility] 05-26-2017 13:29-0400 BMI (Body Mass Index) 30.11 kg/m2 Lissett Ward MD [facility] 05-26-2017 13:29-0400 Body Temperature 97.8 [degF] Lissett Ward MD [facility] 05-26-2017 13:29-0400 BP Diastolic 75 mm[Hg] Lissett Ward MD [facility] 05-26-2017 13:29-0400 BP Systolic 122 mm[Hg] Lissett Ward MD [facility] 05-26-2017 13:29-0400 Pulse (Heart Rate) 97 /min Lissett Ward MD [facility] 05-26-2017 13:29-0400 Respiratory Rate 16 /min Lissett Ward MD [facility] 05-26-2017 13:29-0400 Weight 77.11 kg Lissett Ward MD [facility] 02-24-2017 11:46-0400 Body Temperature 98.6 [degF] Lissett Ward MD [facility] 02-24-2017 11:46-0400 Height 160.02 cm Lissett Ward MD [facility] 02-24-2017 11:46-0400 Weight 76.2 kg Lissett Ward MD [facility] Encounters Encounter Date Encounter Type Care Provider Facility Start: 04-10-2017 End: 04-10-2017 [facility] Procedures Date Procedure Procedure Detail Performing Clinician Start: 06-23-2017 End: 06-23-2017 Routine OB Visit (Global) Lissett blanco MD Work Phone: Start: 05-26-2017 End: 05-26-2017 Routine OB Visit (Global) Lissett blanco MD Work Phone: Start: 04-20-2017 End: 04-20-2017 Routine OB Visit (Global) Deana dodge SET UP MOLD TECHNICIAN Work Phone: Start: 03-24-2017 End: 03-24-2017 Routine OB Visit (Global) Lissett blanco MD Work Phone: Start: 02-24-2017 End: 04-10-2017 *CBC with Differential Lissett koenig MD Work Phone: Start: 02-24-2017 End: 04-13-2017 *CUUID - Urine CHARLENE Culture - Identificatn Lissett Ward MD Work Phone: Start: 02-24-2017 End: 04-13-2017 *GC/Chlamydia Lissett Ward MD Work Phone: Start: 02-24-2017 End: 04-24-2017 *HIV antibody Lissett Ward MD Work Phone: Start: 02-24-2017 End: 04-13-2017 *TS Type and Screen Lissett Ward MD Work Phone: Start: 02-24-2017 End: 04-13-2017 Hep B Ag(s) Lissett Ward MD Work Phone: Start: 02-24-2017 End: 04-24-2017 Reagin Ab [Presence] in Serum by RPR Lissett Ward MD Work Phone: Start: 02-24-2017 End: 04-10-2017 Rubella virus Ab [Units/volume] in Serum Lissett Ward MD Work Phone: Plan of Treatment Date Care Activity Detail Author Start: 07-20-2017 End: 07-20-2017 Appointment Appointment [facility] Start: 06-23-2017 End: 06-23-2017 Appointment Appointment [facility] Start: 05-26-2017 End: 05-26-2017 Appointment Appointment [facility] Start: 05-12-2017 End: 05-15-2017 Us preg uterus after 1st trimest 07/24 gestation US OB, >14 weeks [facility] Start: 02-24-2017 End: 04-10-2017 *CBC with Differential *CBC with Differential [facility] Start: 02-24-2017 End: 04-13-2017 *CUUID - Urine CHARLENE Culture - Identificatn *CUUID - Urine CHARLENE Culture - Identificatn [facility] Start: 02-24-2017 End: 04-13-2017 *GC/Chlamydia *GC/Chlamydia [facility] Start: 02-24-2017 End: 04-13-2017 *HIV antibody *HIV antibody [facility] Start: 02-24-2017 End: 04-13-2017 *TS Type and Screen *TS Type and Screen [facility] Start: 02-24-2017 End: 04-13-2017 Hep B Ag(s) Hep B Ag(s) [facility] Start: 02-24-2017 End: 04-13-2017 Reagin antibody presence *RPR [facility] Start: 02-24-2017 End: 04-10-2017 Rubella virus Ab [Units/volume] in Serum *Rubella Screen [facility] Payers Date Payer Category Payer Policy ID Unknown [id number] Summary Purpose Family History No Family History Records FoundNo Family History Records Found Advance Directives No Advanced Directives Records FoundNo Advanced Directives Records Found Additional Source Comments INFORMATION SOURCE (unrecogn ized section and content) DATE CREATED AUTHOR AUTHOR'S ORGANIZ ATION 06/11/2019 [facility] [place] FOR RECORDS PERTAINING TO PATIENTS WHO ARE OR HAVE BEEN ENROLLED IN A CHEMICAL DEPENDENCY/SUBSTANCEABUSE PROGRAM, SOME INFORMATION MAY BE OMITTED. This clinical summary was aggregated from multiple sources. Caution should be exercised in using it in the provision of clinical care. This summary normalizes information from multiple sources, and as a consequence, information in this document may materially change the coding, format and clinical context of patient data. In addition, data may be omitted in some cases. CLINICAL DECISIONS SHOULD BE BASED ON THE PRIMARY CLINICAL RECORDS. [email or web address]. provides no warranty or guarantee of the accuracy or completeness of information in this document.
[2023-09-07 10:28] LABS: hCG Titer Quant., Serum < 1 mIU/mL (1-3)
[2023-09-07 11:05] LABS: Thyroid Stim Hormone (TSH) 1.56 uIU/mL (0.358-3.74)
[2023-09-07 11:08] LABS: Hemoglobin A1c 5.1 % (3.8-5.6)
[2023-09-07 11:35] LABS: Progesterone Level 5.46 ng/mL (See Comment)
[2023-09-07 15:38] LABS: HIV - WCH Non-Reactive (Nonreactive); Hepatitis B Surface Antigen Non-Reactive (Nonreactive); Hepatitis C Antibody Non-Reactive (Nonreactive); Rubella IgG Reactive (Nonreactive); Syphilis Antibodies Non-reactive
[2023-09-08 11:09] LABS: V-Zoster IgG (Immunity) 1587 index (Immune >165)
== END | disposition home or self-care (01) ==
LOC: BIMLAB 08:04
PROVIDERS: Referring Provider Obstetrics & Gynecology Reproductive Endocrinology; Visit Provider Obstetrics & Gynecology Reproductive Endocrinology
DX: Z01.84 Encounter for antibody response examination (principal); N92.6 Irregular menstruation, unspecified; E02 Subclinical iodine-deficiency hypothyroidism; Z11.3 Encounter for screening for infections with a predominantly sexual mode of transmission; Z11.4 Encounter for screening for human immunodeficiency virus [HIV]; E16.8 Other specified disorders of pancreatic internal secretion; Z11.59 Encounter for screening for other viral diseases; Z11.8 Encounter for screening for other infectious and parasitic diseases
CPT/HCPCS: 83036; 84144; 84443; 84702; 86703; 86762; 86780; 86787; 86803; 86850; 87340; 87491; 87591

== ENCOUNTER → 2023-11-23 | Outpatient (CLI) | payer BC, SELFPAY ==
[2023-11-23 10:45] LABS: hCG Titer Quant., Serum < 1 mIU/mL (1-3)
== END | disposition home or self-care (01) ==
LOC: BIMLAB 09:18
PROVIDERS: Visit Provider Obstetrics & Gynecology Reproductive Endocrinology
DX: Z32.00 Encounter for pregnancy test, result unknown (principal)
CPT/HCPCS: 36415; 84702

== ENCOUNTER → 2024-10-10 | Outpatient (CLI) | payer BC, SELFPAY ==
[2024-10-10 13:13] LABS: Erythrocyte Sedimentation Rate 21 mm/hr (0-30)
[2024-10-10 13:15] LABS: Absolute Lymphocyte Count 1.35 X10^3/uL (0.83-4.51); Absolute Neutrophil Count 2.6 X10^3/uL (2.0-7.7); Eosinophil# 0.07 X10^3/uL; Eosinophils% 1.6 % (0-5); Hematocrit 35.8 % (37-47); Hemoglobin 12.1 g/dL (12.0-15.0); Lymphocyte # 1.35 X10^3/ul (0.83-4.51); Mean Corp Hgb Conc 33.8 g/dL (32-36); Mean Corpuscular Hgb 28.9 pg (27.0-32.0); Mean Corpuscular Volume 85.6 fL (81-99); Mean Platelet Vol. 10.2 fl (6.2-12.0); Monocyte# 0.35 X10^3/uL; NRBC Flagged by Analyzer 0 % (0-5); Neutrophil # 2.58 X10^3/uL (2.7-7.7); Neutrophil % 59.2 % (47-70); Platelet Count 228 K/mm3 (150-450); RBC Distribution Width CV 12.7 % (11.6-14.6); RBC Distribution Width SD 39.2 fl (35.1-43.9); Red Blood Count 4.18 M/mm3 (4.2-5.4); White Blood Count 4.4 K/mm3 (4.4-11.0)
[2024-10-10 13:43] LABS: Hemoglobin A1c 5.2 % (<=5.6)
[2024-10-10 14:20] LABS: ALB/GLOB Ratio 1.2 RATIO (0.9-2.4); AST(SGOT) 15 U/L (<=31); Alanine Aminotransfer ALT/SGPT 15 U/L (<=34); Albumin, Serum 4.1 g/dL (3.5-5.0); Alkaline Phosphatase 67 U/L (35-104); Anion Gap 12 (5-15); BUN 21 mg/dL (4-19); BUN/Creat Ratio 27.8 RATIO (10-20); Calcium,Total 9.7 mg/dL (7.6-11.0); Carbon Dioxide 22.3 mmol/L (21.0-32.0); Chloride 104 mmol/L (98-108); Creatinine, Serum 0.74 mg/dL (0.70-1.20); EST Glomerular Filtration Rate 109 (>60); Globulin 3.4 g/dL (2.2-4.2); Glucose 82 mg/dL (70-99); Potassium 3.9 mmol/L (3.3-5.1); Protein, Total 7.5 g/dL (5.9-8.4); Sodium Level 138 mmol/L (133-145); Total Bilirubin 0.41 mg/dL (0.00-1.30)
[2024-10-10 21:05] LABS: Cholesterol 165 mg/dL (<=200); High Density Lipoprotein 40 mg/dL; Low Density Lipoprotein Calc. 100 mg/dL; Triglycerides 127 mg/dL; Very Low Density Lipoprotein 25 mg/dL (5-40); cholesterol:hdl ratio screen 4.15
[2024-10-10 21:16] LABS: CORTISOL AM 0.47 ug/dL (6.02-18.40); CRP 9.28 mg/L (0.0-3.0); Estradiol 39.2 pg/mL; Follicle Stimulating Hormone 5.4 mIU/mL; Luteinizing Hormone 12.1 mIU/mL; Magnesium 2.1 mg/dL (1.5-2.2); Rheumatoid Factor < 10.0 IU/mL (<15); T3 Total - Triiodothyronine 0.74 ng/mL (0.80-2.00); Thyroid Stim Hormone (TSH) 0.998 uIU/mL (0.300-4.200); Vitamin B12 > 4000 pg/mL (180-914); Vitamin D,25 Hydroxy 34.4 ng/mL (30-100)
[2024-10-11 10:08] LABS: Anti-Centromere B Ab <0.2 AI (0.0-0.9); Anti-Chromatin 3.2 AI (0.0-0.9); Anti-Jo <0.2 AI (0.0-0.9); Anti-Scleroderma-70 AB 0.2 AI (0.0-0.9); Anti-dsDNA Ab <1 IU/mL (0-9); PROGESTERONE 0.1 ng/mL (.); RNP Ab >8.0 AI (0.0-0.9); SJOGREN'S Anti-SS-A test < 0.2 AI (0.0-0.9); SJOGREN'S Anti-SS-B test < 0.2 AI (0.0-0.9); Smith Ab 0.6 AI (0.0-0.9)
== END | disposition home or self-care (01) ==
LOC: VSLAB 09:26
DX: Z00.00 Encounter for general adult medical examination without abnormal findings (principal); M06.9 Rheumatoid arthritis, unspecified; E28.2 Polycystic ovarian syndrome; E56.9 Vitamin deficiency, unspecified
CPT/HCPCS: 36415; 80053; 80061; 82306; 82533; 82607; 82670; 83001; 83002; 83036; 83735; 84144; 84402; 84403; 84439; 84443; 84445; 84480; 85025; 85652; 86140; 86200; 86225; 86235; 86376; 86431; 86800

== ENCOUNTER → 2025-04-02 | Outpatient (CLI) | payer BC, SELFPAY ==
[2025-04-02 13:10] LABS: hCG Titer Quant., Serum < 1 mIU/mL (<9 non-preg)
[2025-04-02 13:33] LABS: AST(SGOT) 15 U/L (<=31); Alanine Aminotransfer ALT/SGPT 12 U/L (<=34); Albumin, Serum 4.5 g/dL (3.5-5.0); Alkaline Phosphatase 77 U/L (35-104); Anion Gap 12 (5-15); BUN 14 mg/dL (4-19); BUN/Creat Ratio 18.0 RATIO (10-20); Calcium,Total 9.4 mg/dL (7.6-11.0); Carbon Dioxide 23.7 mmol/L (21.0-32.0); Chloride 104 mmol/L (98-108); Globulin 2.8 g/dL (2.2-4.2); Glucose 107 mg/dL (70-99); HIV Nonreactive (Nonreactive); Hepatitis B Surface Antigen Nonreactive (Nonreactive); Hepatitis C Antibody Nonreactive (Nonreactive); Potassium 4.0 mmol/L (3.3-5.1); Syphilis Antibodies Nonreactive (Nonreactive)
[2025-04-03 08:09] LABS: PROGESTERONE 0.1 ng/mL (.)
[2025-04-04 23:07] LABS: Anti-Mullerian Hormone,Serum 10.5 ng/mL (.); V-Zoster IgG (Immunity) Reactive (Non Reactive)
== END | disposition home or self-care (01) ==
PROVIDERS: PCP Obstetrics & Gynecology Reproductive Endocrinology; Referring Provider Obstetrics & Gynecology Reproductive Endocrinology; Visit Provider Obstetrics & Gynecology Reproductive Endocrinology
DX: Z01.84 Encounter for antibody response examination (principal); Z32.00 Encounter for pregnancy test, result unknown; E28.2 Polycystic ovarian syndrome; Z31.41 Encounter for fertility testing; Z11.3 Encounter for screening for infections with a predominantly sexual mode of transmission; Z11.4 Encounter for screening for human immunodeficiency virus [HIV]; Z11.59 Encounter for screening for other viral diseases; E16.8 Other specified disorders of pancreatic internal secretion
CPT/HCPCS: 36415; 80053; 83036; 83516; 84144; 84702; 86703; 86762; 86780; 86787; 86803; 86850; 87340; 87491; 87591